=== PATIENT | female | born 2005 | race Caucasian/White ===

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

== ENCOUNTER 2023-09-16 10:58 | Emergency (ER) | payer MEDICAID, SELFPAY ==
[2023-09-16 11:02] VITALS: BP 137/84; PULSE 80; RESP 16; TEMP 36.6; O2SAT 99
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
[2023-09-16] MEDS: Haloperidol 1 MG TAB 2 MG PO (11:31)
[2023-09-16 12:12] VITALS: PULSE 80; RESP 20
[2023-09-16] MEDS: diphenhydrAMINE 50 MG/ML VIAL 25 MG IM (12:31)
[2023-09-16] MEDS: LORazepam 2 MG/ML VIAL 1 MG IM (12:32)
[2023-09-16 13:12] VITALS: BP 119/71; PULSE 74; RESP 16
--- NOTE | 2023-09-16 13:55 | PDOC.CMSAFE ---
Date of service: 09/16/23 Time of Service: 13:55 Care Management Safety Plan Status Status: Involuntary Reason for Wait Reason for Wait: Assessment/Screening (EE Paperwork and [facility] Psychiatrist evaluation for second certification. ) Safety Plan Safety Plan: INVOLUNTARY FOR INPATIENT PSYCHIATRIC STABILIZATION. 1230: Sunil Dumont called. CM responded, check in with Alexy [facility] Crisis screener who reports Connie became aggressive during screening, throwing items at [facility] workers, and required intervention and Code Dumont response, Alexy states Nelda, [facility] will prepare EE paperwork for involuntary hold. 1330: Nelda [facility] reports EE paperwork is being completed. Safety plan has been established to meet the needs of the patient, and consideration of the care team, to adhere to patient goals, identify restrictions based on behavioral status, address nutrition, and determine allowed personal belongings, tools for hygiene and personal care. Determine level of activity including ambulation, level of supervision, visitors, and determine privileges based on behaviors and level of engagement by pt. CM called to bedside during Sunil Dumont response. Connie was in four point restraints, sitting up, trying to pull her arms out of the restraints and remained escalated throughout multiple interactions. CM spoke with Connie who provided verbal permission for this internal communications writer to communicate and update her mother. Connie repeatedly stated I want to leave, I don't belong here. She was not easily redirected by patient education on process/procedure and became verbally escalated saying I want to , You're going to hell, also using expletives and derogatory language to verbally attack staff. She refused to engage until permitted to leave. She refused visit with her mother unless she was permitted to leave with her mother. carburetor rebuilder requested family support with Connie's mother, Na. CM met with Na in Access office outside of ED waiting room. CM provided education central to involuntary status, patient rights and provided MH booklet for reference. Na shared the following: Connie has formerly engaged in therapy including a few sessions privately, at [facility] and outpatient online through [place]; none of these were reportedly helpful. Connie tends to become angry and isolate, she struggles with body dysmorphia, fears others and feels when others look at her they are being critical of her face and body, she struggles to see herself. She has severe and persistent bulimia, currently regurgitating most, if not all of her meals. In the past her weight has dropped below 100 lbs, per mother's report. She is currently employed at [facility] [employer] [employer] though Na notes a tendency to spiral and self destruct as Conine struggles to maintain more than a few days at a time. In the past when medications were tried, they reportedly made Connie more violent. Na notes that Prozac and Lexapro were both trialled. Na shares that Connie also struggles with substance use disorder, with ongoing daily nicotine and marijuana use, she also is impulsive with whatever she can get her hands on reportedly crushing and snorting even over the counter medications such as Tylenol and Ibuprofen. Information above, provided by Connie's mother, Na. CM met with staff in ED, outlined Connie's likely coping efforts to grasp some control, while feeling out of control; especially in regard to behavioral expectations. CM reviewed need for exhibited behavior to warrant increase in privileges, specific to period of stability, appropriate communication and verbalizing needs and wants while engaging respectively. Recommend focus on permitting Connie the opportunity to exhibit the ability to self regulate appropriately prior to re-introducing family contact and increased privileges. Awaiting 2nd Certification from [facility], and paperwork processing. SAFETY PLAN: 1. Will remain on SI/HI precautions. In Paper Clothes, is wearing her own socks at this time. 2. Will remain in room under direct supervision of one-on-one staff at all times provided by [employer]; SLEEP TECH, PETROL TANKER DRIVER regulatory affairs assistant. 3. May have paper cups, plates, finger foods as well as a cardboard spoon to eat meals. Connie struggles with persistent bulimia and is likely to regurgitate what is eaten per her mother's report. 4. Follow [facility] Management of the Admitted Behavioral Health Patient policy. 5. Comfort bath system only, shower available in Zone B without limitation; at RN discretion. 6. No personal belongings at this time-does have her own socks. 7. Visitors: none at this time per RN discretion. Mother advocated for brief visit prior to leaving, Connie was only agreeable if she could leave with her mother, was not successfully able to be re-directed to details of involuntary hold. Per staff and [facility] reports, Na became escalated during MH screening and refused to leave the room when directed. 8. Activities: Soft cart items only, at RN discretion. 9. ?Bathroom privileges with supervision, available in Zone B without restriction. 10. Phone: Limited to legal contact at this time via [facility] cordless phone. 11. Due to INVOLUNTARY status, patient is being held at [facility] by the Department of Mental Health ([facility]) until 2nd certification by [facility] Psychiatrist can be performed (within 24 hours). Staff will provide de-escalation support (CPI) as needed. If patient wishes to leave [facility], staff will contact [facility] Crisis Screener ([phone]) and On-Call Graduating Machine Operator ([phone]) as soon as possible. In the event of elopement, notify [facility] Police ([phone]). Patient is currently involuntarily at [facility]. [facility] Frontline Circus Rider will continue seeking placement. Please contact the Forming Machine Operator Graduating Machine Operator ([phone]) for any needed changes to Safety Plan. Safety plan has been provided to interdepartmental care team. Patient will be transported by regional economic liaison at time of discharge.
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
--- NOTE | 2023-09-16 15:04 | ED.PROG_ITS ---
Date of service: 09/16/23 Time of Service: 15:04 Medical Decision Making Patient now much more calm. Resting comfortably currently in zone B. 4 point restraints have been discontinued. Patient alert oriented following commands ambulatory without assistance, no evidence of somnolence or respiratory depression. Awaiting evaluation by psychiatric team for inpatient treatment Quality:[facility] Health Related Social Needs: No Data to Display Sign Out Sign Out Data: Sign Out Comment: SI - Patient awaiting 2nd cert, had some labile mood with restraints for 2 hours. Violent towards staff. Last updated by Yemi Leo PA at 09/16/23 15:03 Discharge Plan Discharge Details Chief Complaint: PsychEval Primary Care Provider: Laila Carrasco ED Provider: Yemi Leo Home Meds and New Rx's Prescriptions: No Action ascorbate calcium (vitamin C) 500 mg tablet 500 mg PO DAILY multivitamin [Daily Multi-Vitamin] Tablet 1 tab PO DAILY
--- NOTE | 2023-09-16 15:30 | RT.EKG_ITS ---
APPROVED REPORT Exam: Resting ECG Reason for Exam: medication Patient Location: E HR:77 bpm ECG Measurements Heart Rate 77 AXIS MO 169 P 72 QRSd 94 QRS 65 QT 412 T 53 QTc 465 Conclusion Sinus rhythm...normal P axis, V-rate 60- 99 sinus rhtyhm, normal axis, non ischemic
[2023-09-16] MEDS: Nicotine 2 MG GUM (15:45)
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
[2023-09-16] MEDS: Nicotine 2 MG GUM CH (23:10)
[2023-09-16] MEDS: LORazepam 1 MG TAB PO (23:10)
[2023-09-17] MEDS: LORazepam 1 MG TAB 2 MG PO (06:35)
[2023-09-17] MEDS: Nicotine 2 MG GUM CH ×4 (06:36→18:38)
--- NOTE | 2023-09-17 07:35 | W.PCEDHO ---
Registration Status: REG ER Primary Language: Preferred Language: ED Information & Data Chief Complaint PsychEval 09/16/23 11:17 Triage Note feeling depressed and 09/16/23 11:02 anxious, mom saw a wrist laceration and brought her to the ED Medical / Surgical History (Last Updated 09/09/22 @ 11:00 by Charito Jiménez NP) Drug abuse Eating disorder (Last Updated 09/09/22 @ 11:00 by Charito Jiménez NP) No pertinent past surgical history Most Recent Vital Signs Temperature 36.6 C 09/16/23 11:02 Temperature Source Tympanic 09/16/23 11:02 Pulse 74 09/16/23 13:12 Respiratory Rate 16 09/16/23 13:12 Respiratory Effort Normal 09/16/23 13:12 Blood Pressure 119/71 09/16/23 13:12 Blood Pressure Position Sitting 09/16/23 11:02 Pulse Oximetry 99 09/16/23 11:02 Oxygen Delivery Method Room Air 09/16/23 11:02 Oxygen Flow Rate 0 09/16/23 11:02 Pain Level 0 09/16/23 11:02 Allergies No Known Drug Allergies Allergy (Verified 09/09/22 09:26) Active Medications Generic Name Dose Route Start Last Admin Trade Name Freq PRN Reason Stop Dose Admin Nicotine 2 mg 09/17/23 06:23 09/17/23 06:36 Nicotine 2 Mg Gum CH 2 mg Q4H PRN PRN Administration Intake and Output - 24 Hour Total 09/16/23 10:58 thru 09/16/23 11:02 Weight 58.967 kg Falls Risk Assessment History of Falls No History 09/16/23 11:06 Contributing Factors No Factors 09/16/23 11:06 Ambulatory Aids Independent 09/16/23 11:06 Tubes/Lines None 09/16/23 11:06 Gait Evaluation No gait disturbance 09/16/23 11:06 Cognition No cognitive impairment 09/16/23 11:06 Fall Total Score 0 09/16/23 11:06 Level of Risk Standard/Low Risk 09/16/23 11:06 Restraint Information Behavior Requiring Restraints/ Harm to Staff & Others Seclusion Date of Initiation 09/16/23 Time Restraints were Initiated 12:00 Note pt is calm and cooperative. Had a good conversation regarding continued care next steps . Criteria for Restraint Removal No longer threat to self,No longer threat to other,Behavior Change Date Restraints Removed 09/16/23 Time Restraints Removed 15:11 Was Restraint Order Yes Discontinued v v v v v v v v v Sending and/or Receiving Nurses: Please use comment section below to note any information pertinent to the patient hand-off not included above. Information / Comments: Report received from: Kim Trotter RN at 0645 hrs on 09/17/23
--- NOTE | 2023-09-17 08:25 | NUR.NOTE ---
Nursing Note: Miguel Caceres from the [facility] Mental Health dept. called requesting information regarding the patient's behavior over the night and at the time of the call; as well as medications given and taken daily. Information given per request.
[2023-09-17] MEDS: diphenhydrAMINE 25 MG CAP PO (09:53)
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
[2023-09-17 11:20] VITALS: BP 122/78; PULSE 79; RESP 12; TEMP 37.2; O2SAT 98
[2023-09-17 11:31] LABS: *AMPHETAMINES SCREEN URINE Negative (Negative); *BARBITURATES SCREEN URINE Negative (Negative); *BENZODIAZEPINES SCREEN URINE Negative (Negative); Cannabinoids THC Positive (Negative); Cocaine Screen,Urine Negative (Negative); METHADONE URINE SCREEN Negative (Negative); OPIATES URINE SCREEN Negative (Negative); Tricyclic Antidepressants Negative (Negative)
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
--- NOTE | 2023-09-17 13:11 | NUR.NOTE ---
Nursing Note: While RN was speaking with pt, it was observed that the pt had a scant amount of blood on her scrubs and that her LT wrist laceration which was inflicted prior to pt's arrival to [facility] had opened up and was scantly bleeding. RN directly asked pt if she purposefully opened the wound up with her nails, pt stated she did not and that the wound opened on its own. RN asked pt if she could replace the steri strips that were on the wound before and bandage it; pt agreeable. MD and ED charge loader notified of incident.
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
[2023-09-17] MEDS: LORazepam 0.5 MG TAB PO ×2 (13:34→17:45)
--- NOTE | 2023-09-17 14:21 | NUR.NOTE ---
Nursing Note: Nurse to nurse report given to Isabelle RUBIO, Armand Abbott at 1422 hours on 09/17/23.
[2023-09-17 17:08] VITALS: BP 118/84; PULSE 95; RESP 14; TEMP 37.2; O2SAT 96
== END 2023-09-17 18:55 ==
PROVIDERS: Emergency Provider Emergency Medicine; PCP Family Medicine
DX: F32.A Depression, unspecified (principal); F41.9 Anxiety disorder, unspecified; R45.1 Restlessness and agitation; S61.512A Laceration without foreign body of left wrist, initial encounter; Z78.1 Physical restraint status; F17.210 Nicotine dependence, cigarettes, uncomplicated; X78.8XXA Intentional self-harm by other sharp object, initial encounter; Y92.018 Other place in single-family (private) house as the place of occurrence of the external cause
CPT/HCPCS: 00123; 80307; 81025; 93005; 96372; 99285; 93010; J1200; J2060

== ENCOUNTER 2023-10-24 15:09 | Emergency (ER) | payer MEDICAID, SELFPAY ==
[2023-10-24 15:09] VITALS: BP 129/105; PULSE 72; RESP 16; TEMP 36.3; O2SAT 99
[2023-10-24 15:42] LABS: Bilirubin Negative (Negative); Blood Negative (Negative); Clarity Clear (Clear); Glucose Negative (Negative); Ketones Negative (Negative); Leukocyte Esterase Negative (Negative); Nitrite Negative (Negative); Specific Gravity <= 1.005 (1.005-1.025); Urobilinogen 0.2 mg/dL (Up to 0.2)
[2023-10-24 15:55] LABS: *AMPHETAMINES SCREEN URINE Negative (Negative); *BARBITURATES SCREEN URINE Negative (Negative); *BENZODIAZEPINES SCREEN URINE Negative (Negative); Cannabinoids THC Positive (Negative); Cocaine Screen,Urine Negative (Negative); METHADONE URINE SCREEN Negative (Negative); OPIATES URINE SCREEN Negative (Negative)
[2023-10-24 15:56] LABS: Tricyclic Antidepressants Negative (Negative)
[2023-10-24 16:15] VITALS: BP 128/98
[2023-10-24] MEDS: Acetaminophen 500 MG TAB 1000 MG PO (16:15)
--- NOTE | 2023-10-24 16:22 | ED.GENADUL_ITS ---
Discharge Plan Disposition Patient Disposition: Psychiatric Hospital/Unit Specific Psychiatric Facility: Other Discharge Details Chief Complaint: PsychEval Clinical Impression: Depression, Deliberate self-cutting Primary Care Provider: Laila Carrasco ED Provider: Fortunato Rebollar Home Meds and New Rx's Prescriptions: No Action gabapentin 300 mg capsule 300 mg PO TID Patient Comments: TAKE ONE CAPSULE BY MOUTH THREE TIMES A DAY NEEDED FOR SEVERE ANXIETY fluoxetine [Prozac] 10 mg capsule 10 mg PO DAILY HPI General Date/Time Provider Initiated Documentation: 10/24/23 15:20 . Limitations to Documentation: no limitations . Information obtained by: patient . HPI Narrative: 17-year-old female with past medical history of depression and anxiety presents for evaluation of increasing thoughts of self-harm and self cutting. Patient reports that she cut her left forearm with a razor blade today. She reports that she did have intention to harm herself. She states that she was recently discharged from [facility] after an inpatient stay. She reports that she feels like she was discharged too soon, she feels like she is not better. She states that the medication she was discharged on has not been helping her. She denies any drug or alcohol use. Related Data Home Medications Medication Instructions Recorded Confirmed fluoxetine 10 mg capsule (Prozac) 10 mg PO DAILY 10/24/23 10/24/23 gabapentin 300 mg capsule 300 mg PO TID 10/24/23 10/24/23 Allergies Allergy/AdvReac Type Severity Reaction Status Date / Time No Known Drug Allergies Allergy Verified 09/09/22 09:26 General Stated Complaint: PsychEval COLTON: 2 Exam Narrative Exam Narrative: Review of Systems: All systems reviewed & are unremarkable except as noted in HPI and below Well-developed, tearful NCAT PERRL, normal conjunctiva RRR Unlabored respiratory effort Nondistended abdomen Extremities w/o deformity, no cyanosis, no edema Multiple linear superficial lacerations of the left forearm, these are all perpendicular to the arm, no large lacerations requiring suture repair, patient is neurovascularly intact with good movement, sensation and range of motion in all distributions of the hand no focal neurologic deficits + SI Course Vital Signs Vital signs: Vital Signs Temperature 36.3 C L 10/24/23 15:09 Pulse 72 10/24/23 15:09 Respiratory Rate 16 10/24/23 15:09 Blood Pressure 129/105 H 10/24/23 15:09 Pulse Oximetry 99 10/24/23 15:09 Temperature 36.3 C L 10/24/23 15:09 Temperature Source Tympanic 10/24/23 15:09 Pulse 72 10/24/23 15:09 Respiratory Rate 16 10/24/23 15:09 Respiratory Effort Normal, Non-Labored 10/24/23 15:21 Blood Pressure 128/98 H 10/24/23 16:15 Blood Pressure Position Sitting 10/24/23 15:09 Pulse Oximetry 99 10/24/23 15:09 Oxygen Delivery Method Room Air 10/24/23 15:09 Oxygen Flow Rate 0 10/24/23 15:09 Pain Level 8 10/24/23 15:09 Lab/Test Results Lab/Test Results: Laboratory Tests Range/Units 10/24/23 15:27 Urine Color (Yellow) Yellow Urine Clarity (Clear) Clear Urine pH (5-8) 6.0 Ur Specific [place] (1.005-1.025) <= 1.005 Urine Protein (Neg-Trace) mg/dL Negative Urine Ketones (Negative) mg/dL Negative Urine Blood (Negative) Negative Urine Nitrite (Negative) Negative Urine Bilirubin (Negative) Negative Urine Urobilinogen (Up to 0.2) mg/dL 0.2 Ur Leukocyte Esterase (Negative) Negative Urine Glucose (Negative) mg/dL Negative Urine Opiates Screen (Negative) Negative Urine Methadone Screen (Negative) Negative Ur Barbiturates Screen (Negative) Negative Ur Tricyclics Screen (Negative) Negative Ur Amphetamines Screen (Negative) Negative U Benzodiazepines Scrn (Negative) Negative Urine Cocaine Screen (Negative) Negative Ur THC Screen (Negative) Positive A POC- Test(urine) Negative Procedures Laceration Laceration 1: Site: upper extremity Side (If applicable): left Description: linear Depth: simple, single layer Skin layer closed with: other (steri strips) Medical Decision Making Evaluation of depression and suicidal ideation with self-harm including self cutting of the left forearm. Initial differential includes mood disorder, substance-induced mood disorder, major depressive disorder. Lacerations of the left forearm are very superficial, no deep structures are involved, the wounds were cleaned and Steri-Strips applied on some of the more gaping areas. Otherwise the patient is medically cleared for psychiatric evaluation. Smart clearance form completed. Patient was evaluated by [facility], she is requesting inpatient voluntary placement. Referrals will be sent for placement. Medical Records Medical records reviewed: Yes I reviewed the patient's medical records. Lab Data Lab results reviewed: Yes I reviewed the patient's lab results. Quality:[facility] Health Related Social Needs: No Data to Display PFSH All Active Problems (Updated 10/24/23 @ 16:40 by Fortunato Rebollar MD) Deliberate self-cutting (Acute) Depression (Chronic) Medical History Drug abuse hx of cocaine, codeine, percocet and adderall abuse Eating disorder Surgical History No pertinent past surgical history Family History Other Breast cancer Social History Smoking/Tobacco Use Status: Current every day Tobacco Type: cigarettes Smoking risk assessment performed?: Yes Alcohol Intake: former Drug use: Occasionally Substance use type: marijuana Do you feel safe at home: Yes Female Reproductive History Menstrual control method: condoms History History 0 Para Hx # Term Pregnancies Multiple births Hx # Pregnancies Ectopic pregnancies AB induced Hx Number of Living Children AB spontaneous
--- NOTE | 2023-10-24 16:36 | PDOC.MHCN_ITS ---
Date of service: 10/24/23 Time of Service: 04:19 PHQ-9 Over the last 2 weeks, how often have you been bothered by any of the following problems? 1. Little interest or pleasure in doing things: more than half the days 2. Feeling down, depressed, or hopeless: nearly every day 3. Trouble falling or staying asleep, or sleeping too much: several days 4. Feeling tired or having little energy: more than half the days 5. Poor appetite or overeating: nearly every day 6. Feeling bad about yourself - or that you are a failure or have let yourself and your family down: nearly every day 7. Trouble concentrating on things, such as reading the newspaper or watching television: more than half the days 8. Moving or speaking so slowly that other people could have noticed? - Or the opposite - being so fidgety or restless that you have been moving around a lot more than usual: several days 9. Thoughts that you would be better off or of hurting yourself in some way: nearly every day Total score: 20 If you checked off any problems, how difficult have these problems made it for you to do your work, take care of things at home, or get along with other people?: extremely difficult PHQ-9 Results: Positive Source: Developed by Drs. Shay Herrera, Mely Quinteros, Boom Joshua and colleagues, with an educational blanca from [employer]. Suicide Severity Rate CSSRS Have you wished you were or wished you could go to sleep and not wake up?: Yes Have you actually had any thoughts of killing yourself?: Yes CSSRS2 Have you been thinking about how you might do this?: Yes Have you had these thoughts and had some intention of acting on them?: No Have you started to work out or worked out the details of how to kill yourself? Do you intend to carry out this plan?: No CSSRS3 Have you ever done anything, started to do anything or prepared to do anything to end your life?: Yes CSSRS4 Was this within the past three months?: Yes Screening Score Total Score: 8 Screening: Positive Mental Health Emergency Note Release [facility] release signed:: Yes Reason for Visit Connie presented to [facility] due to a laceration on her arm that was self inflicted, Connie was transported via ambulance from her home. Connie is known to [facility] and is followed by a therapist and med provider. Connie is being seen via Zoom for this assessment. In the last 2 weeks has the pt presented for ES prior to today?: Unknown Client Information Client is: [facility]: Yes Non Suicidal Self Injury Current: Yes, Connie presented to the hospital today due to her self harm. Connie intentionally cut herself on her arm. History: yes, Connie has a history of cutting at 10, and then from age 15- now. Safety Risk/Harm to Self or Others Current Ideation to Harm Self or Others: Yes to self. (Connie reports she is having a lot of thoughts about not wanting to be alive. ) Intent: no, has no intent. Plan: no.does not have a plan. History of suicide attempt: No history of suicide attempt reported Risk: Does risk to harm exist?: yes. Access to means: No. Risk: Low Risk Duty to warn indicated: No Asssessment/Mental Status Appearance: Unremarkable Attitude: Cooperative Behavior: Unremarkable Speech: Normal Affect: Cogruent with mood Mood: Stressed Thought process: Goal directed Hallucinations: No evidence Delusions: No evidence Attention: Unremarkable Perception: Not impaired Orientation: Fully orientated Memory: Intact Insight: Fair Judgement: Fair Neurovegetative Symptoms Sleep: Decrease Appetitie: No change Interests: No change Energy: No change Libido: Not applicable Substance Use: Do you use nicotine?: Yes Have you used substances in the last 7 days?: No Additional Issues: Assaultive/Threatening Behavior: No Medical Concerns: No Client engaged in active self harm w/weapon: Yes Threatening to run away: No Child reported abuse/neglect: No Voluntarily presenting for services: Yes Domestic violence is a concern: No Extreme Psychosis or extreme behavior is present: No Impression 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 Connie reports she was self harming after having thoughts of ending her life when she asked to go to the hospital because she cut 'too deep' and thought a doctor should look at it.. Connie reports the cut required stitches and is now wrapped. Connie reports she is still having thoughts about ending her life but does not have a specific plan or intention. Connie reports several life stressors including her home life, family conflicts, being unemployed, and the overall feeling of being dissatisfied with her life. Connie reports she firs thought about ending her life around the age of [age] when her home life and family dynamic was shifting. Connie reports this is also the first time she cut herself. Connie reports struggling with this for some time around the age of 10, but it went away until she was about 15. Connie reports that she recently feels depressed, cannot sleep, and has a lack of motivation to do anything. Connie disclosed she went to [facility] about one month ago and found it beneficial and feels like she is at the level where she needs inpatient support. Connie will remain at [facility], seeking voluntary inpatient treatment. Resources Reosurces reviewed and given:: [facility] Plan/Disposition Recommended Disposition: Hospitalization (Referrals are being sent now. ) fac ilities contacted. Plan: Connie will remain at [facility] until voluntary placement is found. Person reported agreement to plan: Yes Reports/communication Outcome discussed with: ED/Personnel
[2023-10-24] MEDS: ALPRAZolam 0.5 MG TAB PO (17:38)
--- NOTE | 2023-10-24 18:43 | W.EDPROG ---
Date of service: 10/24/23 Time of Service: 18:43 Medical Decision Making I received signout on this 17-year-old patient in the emergency department voluntarily in the setting of depression. She has recently been hospitalized at the [facility]. She engaged in some superficial self cutting today for which she received Steri-Strips. Her home medications have been ordered as well as some as needed alprazolam and quetiapine. She is on a regular diet with a safety tray. No active behavioral issues last shift. Will update documentation as clinically warranted and signed patient out to the [facility] overnight provider. 11:11 PM No active behavioral issues on my shift. I signed patient out to Dr. Chapa. Quality:[facility] Health Related Social Needs: No Data to Display Sign Out Sign Out Data: Sign Out Comment: Pending voluntary psychiatric placement for depression and suicidal ideation Medically cleared, evaluated by [facility] home medications and PRNS for anxiolysis and sleep have been ordered Patient presented today with increasing depression and suicidal ideation, she had self-inflicted superficial cutting of her left forearm. A few Steri-Strips were applied, but otherwise lacerations are fairly superficial. She was recently inpatient at [facility] and feels like she was discharged too soon and is requesting to return. Last updated by Fortunato Rebollar MD at 10/24/23 17:02 Discharge Plan Disposition Patient Disposition: Psychiatric Hospital/Unit Specific Psychiatric Facility: Other Discharge Details Clinical Impression: Depression, Deliberate self-cutting Primary Care Provider: Laila Carrasco ED Provider: Kvng Riley Home Meds and New Rx's Prescriptions: No Action gabapentin 300 mg capsule 300 mg PO TID Patient Comments: TAKE ONE CAPSULE BY MOUTH THREE TIMES A DAY NEEDED FOR SEVERE ANXIETY fluoxetine [Prozac] 10 mg capsule 10 mg PO DAILY bupropion HCl 150 mg tablet sustained-release 12 hr PO QAM Patient Comments: TAKE ONE TABLET BY MOUTH EVERY DAY
[2023-10-24] MEDS: Gabapentin 300 MG CAP PO (20:30)
[2023-10-24] MEDS: FLUoxetine 10 MG TAB PO (21:43)
[2023-10-24] MEDS: QUEtiapine 50 MG TAB PO (21:44)
[2023-10-25] MEDS: ALPRAZolam 0.5 MG TAB PO ×2 (03:53→11:36)
[2023-10-25] MEDS: Gabapentin 300 MG CAP PO (07:03)
--- NOTE | 2023-10-25 07:03 | W.EDPROG ---
Date of service: 10/25/23 Time of Service: 07:03 Medical Decision Making Patient seeking voluntary placement for depression and thoughts of self-harm, no reported events overnight and currently calm and cooperative with no acute complaints. Will continue to monitor until safe disposition found. Quality:[facility] Health Related Social Needs: No Data to Display Sign Out Sign Out Data: Sign Out Comment: Pending voluntary psychiatric placement for depression and suicidal ideation Medically cleared, evaluated by [facility] home medications and PRNS for anxiolysis and sleep have been ordered Patient presented today with increasing depression and suicidal ideation, she had self-inflicted superficial cutting of her left forearm. A few Steri-Strips were applied, but otherwise lacerations are fairly superficial. She was recently inpatient at [place] and feels like she was discharged too soon and is requesting to return. Last updated by Fortunato Rebollar MD at 10/24/23 17:02 Sign Out Comment: This is a 17-year-old female in the emergency department voluntarily with in setting of depression and suicidal ideation. Home medications ordered. Additional PRNs in place as well. Regular diet with a safety tray. No active behavioral issues last shift. [facility] hoping for return to [facility]. Last updated by Kvng Riley MD at 10/24/23 23:14 Sign Out Comment: No events overnight. Remains voluntary and awaiting inpatient psychiatric bed. Last updated by Shay Chapa MD at 10/25/23 06:48 Discharge Plan Disposition Patient Disposition: Psychiatric Hospital/Unit Specific Psychiatric Facility: Other Discharge Details Clinical Impression: Depression, Deliberate self-cutting Primary Care Provider: Laila Carrasco ED Provider: Miguel Jiménez Home Meds and New Rx's Prescriptions: No Action gabapentin 300 mg capsule 300 mg PO TID Patient Comments: TAKE ONE CAPSULE BY MOUTH THREE TIMES A DAY NEEDED FOR SEVERE ANXIETY fluoxetine [Prozac] 10 mg capsule 10 mg PO DAILY bupropion HCl 150 mg tablet sustained-release 12 hr 150 mg PO QAM Patient Comments: TAKE ONE TABLET BY MOUTH EVERY DAY
[2023-10-25] MEDS: buPROPion-XL 150 MG TABCR PO (08:19)
[2023-10-25] MEDS: Haloperidol 1 MG TAB 2 MG PO (09:01)
[2023-10-25 09:16] VITALS: BP 120/85; PULSE 67; RESP 16; TEMP 36.8; O2SAT 100
--- NOTE | 2023-10-25 10:50 | NUR.NOTE ---
Referral given to Care managers for assistance scheduling an appointment [facility] Bleeding in
== END 2023-10-25 12:03 ==
PROVIDERS: Emergency Medicine; Emergency Provider Emergency Medicine; PCP Family Medicine
DX: R45.851 Suicidal ideations (principal); F32.A Depression, unspecified; S51.812A Laceration without foreign body of left forearm, initial encounter; F17.210 Nicotine dependence, cigarettes, uncomplicated; X78.8XXA Intentional self-harm by other sharp object, initial encounter
CPT/HCPCS: 00123; 80307; 81025; 96127; 99285; 81003

== ENCOUNTER 2023-12-22 17:31 | Emergency (ER) | payer MEDICAID, SELFPAY ==
[2023-12-22 17:41] VITALS: BP 120/85; PULSE 85; RESP 16; TEMP 37.1; O2SAT 99
--- NOTE | 2023-12-22 18:09 | W.ED.GENAD ---
Discharge Plan Discharge Details Chief Complaint: PsychEval Primary Care Provider: Laila Carrasco ED Provider: Miriam Jose Home Meds and New Rx's Prescriptions: No Action gabapentin 300 mg capsule 600 mg PO DAILY PRN Patient Comments: TAKE ONE CAPSULE BY MOUTH THREE TIMES A DAY NEEDED FOR SEVERE ANXIETY fluoxetine [Prozac] 10 mg capsule 20 mg PO DAILY Patient Comments: taking at night bupropion HCl 150 mg tablet sustained-release 12 hr 300 mg PO QAM hydroxyzine HCl 50 mg tablet 50 mg PO TID PRN Patient Comments: TAKE ONE TABLET BY MOUTH THREE TIMES A DAY NEEDED FOR ANXIETY buspirone 5 mg tablet 5 mg PO BID Patient Comments: TAKE 1 TABLET BY MOUTH TWO TIMES A DAY DAILY. INCREASE TO 2 TABLETS TWO TIMES A DAY POST 4 DAYS IF WELL TOLERATED lorazepam 0.5 mg tablet 0.5 mg PO DAILY PRN Patient Comments: TAKE ONE TABLET BY MOUTH EVERY DAY NEEDED FOR SEVERE ANXIETY HPI General Date/Time Provider Initiated Documentation: 12/22/23 17:37. HPI Narrative: Connie is a 18 year old female who presented to the emergency department today for suicidal ideation and self-harm. She reports that she was hospitalized 4 weeks ago for 1 week for suicide attempt, says that she has been under significant stress and today everything came to ahead. She admits to cutting herself with a razor blade as a suicide attempt. Denies HI, hallucinations, episodes of yan. Says she has otherwise been in good health, no headache, dizziness, congestion, cough, chest pain, shortness of breath, nausea/vomiting, change in p.o. intake, abdominal pain, change in bowel or bladder function. No significant past medical history. Says she is up-to-date for tetanus. She denies alcohol or tobacco use, marijuana use, other drug use, medication misuse/overdose. Physical exam remarkable for numerous cuts to volar aspect of left forearm, some gaping. No active bleeding at this time. Full painless range of motion to elbow and wrist. Vital signs stable, no tachycardia, tachypnea. Easy work of breathing, lung sounds clear bilaterally. Normal heart sounds. Abdomen is soft, nondistended, nontender to palpation. Moist mucous membranes. Normal gait. History and presentation consistent with suicidal ideation with no complicating factors, smart clearance performed. Patient to be medically cleared after lacerations repaired. Gapping lacerations repaired after extensive irrigation under running tap water. Able to visualize wound to the base in a bloodless field. 5 cc 2% lidocaine with epi used for local anesthetic after let application as well. 20 sutures placed using 4-0 Ethilon. Edges able to be well-approximated. Steri-Strips also applied to the lacerations. Patient tolerated procedure well. Patient medically cleared for zone B. I did discuss case with patient's mother, who is concerned that patient was recently switched from 1800 mg of gabapentin daily to as needed (3 days ago). She is concerned that this may have precipitated crisis. Patient has been evaluated by Marilu at [facility]. Connie does have a therapy appointment tomorrow. Mother (who pt lives with) has Connie's medications locked up; there is no access to firearms at home and mother will secure the home and look for dangerous items. Connie and her mother are both agreeable with plan of care. Patient to be safety planned home. Related Data Home Medications ?Medication ?Instructions ?Recorded ?Confirmed bupropion HCl 150 mg tablet,12 hr 300 mg PO QAM 10/24/23 12/22/23 sustained-release fluoxetine 10 mg capsule (Prozac) 20 mg PO DAILY 10/24/23 12/22/23 gabapentin 300 mg capsule 600 mg PO DAILY PRN 10/24/23 12/22/23 hydroxyzine HCl 50 mg tablet 50 mg PO TID PRN 10/25/23 12/22/23 buspirone 5 mg tablet 5 mg PO BID 12/22/23 12/22/23 lorazepam 0.5 mg tablet 0.5 mg PO DAILY PRN 12/22/23 12/22/23 Allergies Allergy/AdvReac Type Severity Reaction Status Date / Time No Known Drug Allergies Allergy Unknown Verified 12/22/23 17:46 General Stated Complaint: PsychEval COLTON: 2 Review of Systems Narrative: see HPI Exam Const General: cooperative, healthy appearing, comfortable, no acute distress and anxious Nutritional Appearance: average body habitus Resp Effort & Inspection: normal respiratory effort and able to speak in complete sentences Auscultation: clear to auscultation bilaterally Cardio Rate: regular rate Rhythm: regular rhythm Pulses: radial pulses present GI Inspection: normal to inspection Palpation: soft and nontender Skin Rashes: no rashes Trauma: laceration (multiple, L forearm (volar aspect)) Course Vital Signs Vital signs: Vital Signs Temperature 37.1 C 12/22/23 17:41 Pulse 85 12/22/23 17:41 Respiratory Rate 16 12/22/23 17:41 Blood Pressure 120/85 12/22/23 17:41 Pulse Oximetry 99 12/22/23 17:41 Temperature 37.1 C 12/22/23 17:41 Temperature Source Skin 12/22/23 17:41 Pulse 85 12/22/23 17:41 Respiratory Rate 16 12/22/23 17:41 Respiratory Effort Normal, Non-Labored 12/22/23 18:05 Blood Pressure 120/85 12/22/23 17:41 Blood Pressure Position Sitting 12/22/23 17:41 Pulse Oximetry 99 12/22/23 17:41 Oxygen Delivery Method Room Air 12/22/23 17:41 Oxygen Flow Rate 0 12/22/23 17:41 Pain Level 0 12/22/23 17:41 Procedures Laceration Laceration 1: Site: upper extremity (forearm) Side (If applicable): left Description: linear (multiple, linear. Approx 4-9 cm in length (approx 10 lacerations total)) Depth: simple, single layer Local anesthetic: Lidocaine 2%, with Epi and LET(lidocaine epinephrine tetracaine) Amount of anesthesia used (mL): 5 Pre-repair: wound explored, irrigated extensively and deep structures intact Skin layer closed with: nylon Size (cm): 4-0 Number of sutures: 20 Technique: simple, interrupted and other (plus steristrips) Medical Decision Making Quality:SDOH Health Related Social Needs: No Data to Display PFSH All Active Problems (Updated 11/25/23 @ 00:09 by GALINDO ANGLIN) Depression (Chronic) Medical History Drug abuse hx of cocaine, codeine, percocet and adderall abuse Eating disorder Surgical History No pertinent past surgical history Family History Other Breast cancer Social History Smoking/Tobacco Use Status: Never Smoking risk assessment performed?: Yes Alcohol Intake: former Drug use: Never Substance use type: does not use Do you feel safe at home: Yes Female Reproductive History Menstrual control method: condoms History History 0 Para Hx # Term Pregnancies Multiple births Hx # Pregnancies Ectopic pregnancies AB induced Hx Number of Living Children AB spontaneous
--- OUTSIDE RECORDS SUMMARY | 2023-12-22 18:12 | XMS_ITS | Encounter Summary ---
Author Organization [facility] Address [address] [place] [address] Care Team Providers Care Water Service Dispatcher Name Role Phone Unavailable Primary Care Provider Unavailabl e Encounter Details Date Type Department Care Team (Late st Contact Info) Description 09/10/2022 Lab Requisition [facility] Pathology & Laboratory Medicine - [address] [address] Outr Resulting Lab, Provider Social History Tobacco Use Types Packs/Day Years Used Date Smoking Tobacco: Never Assessed Sex and Gender Information Value Date Recorded Sex Assigned at Not on file Gender Identity Not on file Sexual Orientation Not on file documented as of this encounter Plan of Treatment Not on file documented as of this encounter Procedures Procedure Name Priority Date/Time Associated Diagnosis Comments CHLAMYDIA/N. GONORRHOEAE AMPLIFIED NUCLEIC ACID Routine 09/09/2022 10:00 EDT documented in this encounter Results * CHLAMYDIA/N. GONORRHOEAE AMPLIFIED RNA (09/09/2022 10:00 EDT) Neisseria gonorrhoeae Result Negative Negative 09/11/2022 13:25 EDT [facility] Chlamydia trachomatis Result Negative Negative 09/11/2022 13:25 EDT [facility] Urine URINE / Unknown 09/09/2022 1 0:00 EDT 09/10/2022 18:48 EDT Narrative [facility] - 09/11/2022 13:25 EDT A first catch urine specimen is acceptable for detection of Gonorrhea and Chlamydia, but might detect up to 10% fewer infections when compared with vaginal and endocervical swab samples. Provider Outr Resulting Lab MICROBIOLOGY - GENERAL ORDERABLES [facility] [address] [place] [address] documented in this encounter Visit Diagnoses Not on filedocumented in this encounter
--- OUTSIDE RECORDS SUMMARY | 2023-12-22 18:12 | XMS_ITS | Referral Summary ---
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
--- OUTSIDE RECORDS SUMMARY | 2023-12-22 18:12 | XMS_ITS | Clinical Summary ---
Author Organization [facility] Address [address] [place] [id number] Care Team Providers Care Director Of Global Marketing Name Role Phone Unavailable Primary Care Provider Unavailabl e Social History Tobacco Use Types Packs/Day Years Used Date Smoking Tobacco: Never Assessed Sex and Gender Information Value Date Recorded Sex Assigned at Not on file Gender Identity Not on file Sexual Orientation Not on file Plan of Treatment Health Maintenance Due Date Last Done Comments Hepatitis C Screen 2003 Hepatitis B Vaccine (1 of 3 - 19+ 3-dose series) 11/25 COVID-19 Vaccine (2022-24 season) 2023
[2023-12-22] MEDS: Lidocaine/Epinephri/Tetracaine Topical Gel 3 ML TP (18:26)
[2023-12-22] MEDS: Lidocaine 2% Pres-Free W/EPI 1/200,000 20 ML VIAL (20:03)
[2023-12-22] MEDS: Gabapentin 300 MG CAP 600 MG PO (20:22)
[2023-12-22] MEDS: busPIRone 5 MG TAB PO (20:22)
[2023-12-22] MEDS: LORazepam 0.5 MG TAB PO (20:22)
== END 2023-12-22 23:39 | disposition home or self-care (01) ==
PROVIDERS: Emergency Provider Nurse Practitioner Family; PCP Family Medicine
DX: R45.851 Suicidal ideations (principal); S51.812A Laceration without foreign body of left forearm, initial encounter; F32.A Depression, unspecified; Z78.1 Physical restraint status; X78.1XXA Intentional self-harm by knife, initial encounter; Y93.89 Activity, other specified
CPT/HCPCS: 12004; 81025; 90471; 90715; 99285

== ENCOUNTER 2023-12-23 09:32 | Emergency (ER) | payer MEDICAID, SELFPAY ==
[2023-12-23 09:40] VITALS: BP 124/88; PULSE 86; RESP 14; TEMP 36.7; O2SAT 99
--- NOTE | 2023-12-23 09:55 | ED.GENADUL_ITS ---
Discharge Plan Discharge Details Chief Complaint: PsychEval Primary Care Provider: Laila Carrasco ED Provider: Ira Freed Home Meds and New Rx's Prescriptions: No Action gabapentin 300 mg capsule 600 mg PO DAILY PRN Patient Comments: TAKE ONE CAPSULE BY MOUTH THREE TIMES A DAY NEEDED FOR SEVERE ANXIETY fluoxetine [Prozac] 10 mg capsule 20 mg PO DAILY Patient Comments: taking at night bupropion HCl 150 mg tablet sustained-release 12 hr 300 mg PO QAM hydroxyzine HCl 50 mg tablet 50 mg PO TID PRN Patient Comments: TAKE ONE TABLET BY MOUTH THREE TIMES A DAY NEEDED FOR ANXIETY buspirone 5 mg tablet 5 mg PO BID Patient Comments: TAKE 1 TABLET BY MOUTH TWO TIMES A DAY DAILY. INCREASE TO 2 TABLETS TWO TIMES A DAY POST 4 DAYS IF WELL TOLERATED lorazepam 0.5 mg tablet 0.5 mg PO DAILY PRN Patient Comments: TAKE ONE TABLET BY MOUTH EVERY DAY NEEDED FOR SEVERE ANXIETY HPI General Mode of arrival: ambulatory . Date/Time Provider Initiated Documentation: 12/23/23 09:32 . Limitations to Documentation: no limitations . Information obtained by: patient, RN notes reviewed and old records reviewed . HPI Narrative: 18-year-old female with a history of self cutting who was seen here approximately 24 hours ago and safety planned home presents to the ER with chief complaint of suicidal ideation without specific plan. She does have multiple lacerations noted to her left inner forearm which some of were repaired yesterday with simple interrupted sutures. Patient denies any new cutting no active bleeding noted on exam. She is disheveled. She states that I do not go inpatient I do not feel safe at home and like going to hurt myself. She did take her a.m. medications this morning. Denies taking any extra medications denies any smoking drugs or alcohol. She does not appear to be under the anything at this time. Does have a history of eating disorder in the previous. Patient placed in paper scrubs in line of sight of nurses station, urinalysis UDS and urine ordered patient reports that she is unable to give a sample at this time. Mental health eval ordered. Related Data Home Medications ?Medication ?Instructions ?Recorded ?Confirmed bupropion HCl 150 mg tablet,12 hr 300 mg PO QAM 10/24/23 12/23/23 sustained-release fluoxetine 10 mg capsule (Prozac) 20 mg PO DAILY 10/24/23 12/23/23 gabapentin 300 mg capsule 600 mg PO DAILY PRN 10/24/23 12/23/23 hydroxyzine HCl 50 mg tablet 50 mg PO TID PRN 10/25/23 12/23/23 buspirone 5 mg tablet 5 mg PO BID 12/22/23 12/23/23 lorazepam 0.5 mg tablet 0.5 mg PO DAILY PRN 12/22/23 12/23/23 Allergies Allergy/AdvReac Type Severity Reaction Status Date / Time No Known Drug Allergies Allergy Unknown Verified 12/23/23 09:43 General Stated Complaint: PsychEval COLTON: 2 Review of Systems All systems reviewed & are unremarkable except as noted in HPI and below Psychiatric Psychiatric: Reports as per HPI, Reports depression and Reports suicidal ideation Exam Narrative Exam Narrative: Constitutional: Alert and oriented x3. Appears stated age. Thin body habitus. Disheveled, avoids eye contact. Head: Normocephalic, no trauma. Eyes: Pupils PERRL, Red reflex noted, EOM's intact. Eyelids symmetrical without lesions, discharge, or swelling. ENT: Bilateral TM's WNL, External ear normal to inspection, no mastoid TTP, swelling, or erythema, Nasal turbinates WNL, no nasal discharge. Normal dentition, Posterior pharynx WNL, no exudate. Chest: RRR, Normal S1, S2, distal pulses intact. Resp: Lungs clear to auscultation bilaterally, no wheezes, rales, or rhonchi. Abdomen: Soft, non-distended, Normoactive bowel sounds all 4 quads. Musculoskeletal: Normal gait, Moves all 4 extremities without difficulty. Skin: Multiple linear lacerations, partially repaired with multiple simple interrupted sutures, no induration or signs of infection. Capillary refill less than 2 sec. Neurologic: Cranial nerves II-XII intact. Alert and oriented x 3. Motor: No deficits noted. Sensory: Intact bilaterally all 4 extremities. Hematologic/Lymphatic: No ecchymosis, no lymphadenopathy. Psych: See below Psych Appearance: disheveled Speech and Movement: delayed speech and slowed movement Mood: labile mood Affect: indifferent and blunted Attitude: cooperative and avoids eye contact Thought Process: normal and loose association Thought Content: suicidality Insight: fair Judgment: fair Course Vital Signs Vital signs: Vital Signs Temperature 36.7 C 12/23/23 09:40 Pulse 86 12/23/23 09:40 Respiratory Rate 14 12/23/23 09:40 Blood Pressure 124/88 12/23/23 09:40 Pulse Oximetry 99 12/23/23 09:40 Temperature 36.7 C 12/23/23 09:40 Pulse 86 12/23/23 09:40 Respiratory Rate 14 12/23/23 09:40 Respiratory Effort Normal 12/23/23 09:42 Blood Pressure 124/88 12/23/23 09:40 Blood Pressure Position Sitting 12/23/23 09:40 Pulse Oximetry 99 12/23/23 09:40 Oxygen Delivery Method Room Air 12/23/23 09:40 Oxygen Flow Rate 0 12/23/23 09:40 Pain Level 0 12/23/23 09:40 Medical Decision Making 18-year-old female with a history of self cutting who was seen here approximately 24 hours ago and safety planned home presents to the ER with chief complaint of suicidal ideation without specific plan. She does have multiple lacerations noted to her left inner forearm which some of were repaired yesterday with simple interrupted sutures. Patient denies any new cutting no active bleeding noted on exam. She is disheveled. She states that I do not go inpatient I do not feel safe at home and like going to hurt myself. She did take her a.m. medications this morning. Denies taking any extra medications denies any smoking drugs or alcohol. She does not appear to be under the anything at this time. Does have a history of eating disorder in the previous. Patient placed in paper scrubs in line of sight of nurses station, urinalysis UDS and urine ordered patient reports that she is unable to give a sample at this time. Mental health eval ordered. Medical clearance form ordered, UA UDS urine . Patient transferred to the ED in paper scrubs. Awaiting mental health eval. Requesting anxiety medication, Lorazepam 0.5mg PO BID ordered. Spoke again with psych liaison with an EKG chest who has spoken with patient at length and patient's family patient's mother is very adamant that patient needs to be inpatient and patient is not willing to be safety planned to a care bed at this time. There was discussion on discharge home with safety plan and referral to care bed however patient was not willing to be seen for plan safest option would be to seek inpatient placement at this time. Patient does exhibit self-harm to the point of requiring sutures to her left arm cellulitis despite not verbalizing Plan for safest option at this time is voluntary inpatient. Care is to be handed off to oncoming provider Miriam Cheng NP pending voluntary inpatient psych placement. Patient's daily medications were ordered and diet was ordered. Patient is maintained calm cooperative throughout the entire stay. Medical Records Medical records reviewed: Yes I reviewed the patient's medical records. Quality:SDOH Health Related Social Needs: No Data to Display PFSH All Active Problems Lacerations of multiple sites of left arm (Acute) Depression (Chronic) Medical History Drug abuse hx of cocaine, codeine, percocet and adderall abuse Eating disorder Surgical History No pertinent past surgical history Family History Other Breast cancer Social History Smoking/Tobacco Use Status: Never Smoking risk assessment performed?: Yes Alcohol Intake: former Drug use: Never Substance use type: does not use Do you feel safe at home: Yes Female Reproductive History Menstrual control method: condoms History History 0 Para Hx # Term Pregnancies Multiple births Hx # Pregnancies Ectopic pregnancies AB induced Hx Number of Living Children AB spontaneous Sign Out Sign Out Data: Sign Out Comment: Pending voluntary placement, Refused safety plan, suicidal ideation without a plan. Last updated by Ira Freed NP at 12/23/23 15:49
--- NOTE | 2023-12-23 10:18 | PDOC.MHCN_ITS ---
Date of service: 12/22/23 Time of Service: 20:42 PHQ-9 Over the last 2 weeks, how often have you been bothered by any of the following problems? 1. Little interest or pleasure in doing things: nearly every day 2. Feeling down, depressed, or hopeless: nearly every day 3. Trouble falling or staying asleep, or sleeping too much: not at all 4. Feeling tired or having little energy: several days 5. Poor appetite or overeating: not at all 6. Feeling bad about yourself - or that you are a failure or have let yourself and your family down: nearly every day 7. Trouble concentrating on things, such as reading the newspaper or watching television: not at all 8. Moving or speaking so slowly that other people could have noticed? - Or the opposite - being so fidgety or restless that you have been moving around a lot more than usual: not at all 9. Thoughts that you would be better off or of hurting yourself in some way: not at all Total score: 10 If you checked off any problems, how difficult have these problems made it for you to do your work, take care of things at home, or get along with other people?: very difficult Source: Developed by Drs. Shay Herrera, Mely Quinteros, Boom Joshua and colleagues, with an educational blanca from [employer]. Suicide Severity Rate CSSRS Have you wished you were or wished you could go to sleep and not wake up?: No Have you actually had any thoughts of killing yourself?: No CSSRS3 Have you ever done anything, started to do anything or prepared to do anything to end your life?: Yes CSSRS4 Was this within the past three months?: Yes Screening Score Total Score: 4 Screening: Positive Mental Health Emergency Note Release [facility] release signed:: Yes Reason for Visit Connie presents to [facility] due to a self inflicted cut on her wrist. Connie reports she used a razor blade to cut herself and she cut too deep. In the last 2 weeks has the pt presented for ES prior to today?: Unknown Client Information Client is: Adult Outpatient Well Housed: Yes Non Suicidal Self Injury Current: Yes, Client cut herself with a razor blade. History: yes, Client has a history of self harming via cutting. Safety Risk/Harm to Self or Others Current Ideation to Harm Self or Others: No Risk: Does risk to harm exist?: No Risk: Low Risk Duty to warn indicated: No Asssessment/Mental Status Appearance: Unremarkable Attitude: Cooperative Behavior: Unremarkable Speech: Normal Affect: Cogruent with mood Mood: Anxious Thought process: Unremarkable Hallucinations: No evidence Delusions: No evidence Attention: Unremarkable Perception: Not impaired Orientation: Fully orientated Memory: Intact Insight: Fair Judgement: Fair Neurovegetative Symptoms Sleep: No change Appetitie: No change Interests: No change Energy: No change Libido: Not applicable Substance Use: Do you use nicotine?: No Have you used substances in the last 7 days?: No Additional Issues: Medical Concerns: No Client engaged in active self harm w/weapon: Yes Threatening to run away: No Child reported abuse/neglect: No Voluntarily presenting for services: Yes Domestic violence is a concern: No Extreme Psychosis or extreme behavior is present: No Impression Connie presented to [facility] due to a self inflicted cut on her wrist. Connie reports increased anxiety today and that she cut herself with a razor blade as a coping mechanism. Connie reports she cut too deep which is why she came to [facility]. Connie disclosed she is not having thoughts of not wanting to be alive, did not cut herself in attempt to , and would like to return home tonight as her last stay at [facility] was not beneficial. Connie reports her medications were changed Friday and she thinks the change has something to do with her cutting. This entry writer and Connie discussed the option of her going to the carebed, but she was not interested and reported outpatient treatment would be just fine. Connie and this entry writer discussed other coping skills including journaling, exercising, or talking with her family as well as rubbing an ice cube on her wrist or flicking a hair tie. Connie reports she did not use any coping skills today but feels she would be able to do so at home. Connie will be discharged on a safety plan with follow up to her therapy appointment in the morning and [facility] check in calls through the remainder of the week. Resources Reosurces reviewed and given:: Lissette, Community therapist and [facility] Plan/Disposition Recommended Disposition: Therapy. Plan: Connie will be discharged on a safety plan with follow up through her therapsit and [facility]. Person reported agreement to plan: Yes Reports/communication Outcome discussed with: ED/Personnel
[2023-12-23] MEDS: LORazepam 0.5 MG TAB PO ×2 (10:36→21:05)
--- NOTE | 2023-12-23 14:41 | CMSP_ITS ---
Date of service: 12/23/23 Time of Service: 14:41 Care Management Safety Plan Status Status: Voluntary Reason for Wait Reason for Wait: Inpatient Admission Safety Plan Safety Plan: VOLUNTARY FOR INPATIENT PSYCHIATRIC STABILIZATION.? Patient is appropriate in all interactions since arriving at [facility]; Pt has demonstrated appropriate coping and communication skills, has articulated his or her needs and concerns and is fully engaged during staff interactions. Eloina, [facility] crisis screener reports Connie presented to ED and was on a safety plan prior to returning today. Miguel RN in ED reports Connie became frustrated when engaging with her mother, was easily redirectable and able to process interaction appropriately and reflect on the interaction. Safety plan has been established with patient, and care team, to adhere to patient goals, identify restrictions based on behavioral status, address nutrition, and determine allowed personal belongings, tools for hygiene and personal care. Determine level of activity including ambulation, level of supervision, visitors, and determine privileges based on behaviors and level of engagement by pt. VOLUNTARY SAFETY PLAN: 1. Will remain on suicide precautions, in paper clothes 2. Will remain in Zone B under direct supervision of one-on-one staff at all times provided by [employer]; SUKHWINDER, ROCK SPLITTER wheel loader operator. 3. May have paper cups, plates, finger foods as well as a cardboard spoon with which to eat meals. 4. Follow [facility] Management of the Admitted Behavioral Health Patient policy. 5. Shower available in Zone B without restriction. 6. Personal belongings-soft items permitted at RN discretion. 7. Visitors-permitted at RN discretion. 8. Activities: soft cart items approved per RN discretion. 9.? Bathroom available in Zone B without restriction. 10. Phone: limited to [facility] cordless phone at RN discretion. Due to VOLUNTARY status, if patient wishes to leave [facility], staff will contact [facility] Crisis Screener ([phone]) and Sewing Line Baler ([phone]) as soon as possible. In the event of elopement, notify [facility] Police ([phone]). Patient is currently voluntarily at [facility] and seeking inpatient admission when a bed becomes available. [facility] Frontline Telephone Answerer will continue seeking placement. Please contact the [employer] Baler ([phone]) and [facility] Telephone Answerer ([phone]) for any needed changes in the Safety Plan. Safety plan has been provided to interdepartmental care team.
[2023-12-23 16:42] LABS: Cocaine Screen,Urine Negative (Negative)
[2023-12-23 16:43] LABS: *AMPHETAMINES SCREEN URINE Negative (Negative); *BARBITURATES SCREEN URINE Negative (Negative); *BENZODIAZEPINES SCREEN URINE Positive (Negative); Cannabinoids THC Positive (Negative); OPIATES URINE SCREEN Negative (Negative)
[2023-12-23 16:44] LABS: Tricyclic Antidepressants Negative (Negative)
[2023-12-23] MEDS: hydrOXYzine HCL 25 MG TAB 50 MG PO (16:55)
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
[2023-12-23] MEDS: busPIRone 5 MG TAB PO (20:32)
[2023-12-23] MEDS: Gabapentin 400 MG CAP PO (20:32)
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
[2023-12-23 22:31] VITALS: PULSE 73; O2SAT 96
[2023-12-23 22:41] VITALS: PULSE 68
--- NOTE | 2023-12-23 23:31 | NUR.NOTE ---
[facility] called and stated they will not be able to accept this pt .
[2023-12-23 23:32] VITALS: PULSE 65; O2SAT 95
[2023-12-24 00:50] VITALS: PULSE 60; O2SAT 97
[2023-12-24] MEDS: OLANZapine 10 MG VIAL IM (01:42)
[2023-12-24] MEDS: Water,Injection,Sterile 10 ML VIAL (01:50)
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
--- NOTE | 2023-12-24 08:22 | NUR.NOTE ---
Nursing Note: Received call from Pt Mother, who is on the patients HIPPA directives. Mother is upset, wants to know what's going on and what the plan is. Mother was updated on events that occurred last night as well as patients current status, waiting for inpatient placement. Mother became angry and states the patient does not need or want that. Mothers concerns were acknowledged and directed to discuss with [facility]. Pt moved back to zone b, calm and cooperative at this time. 2nd cert for EE to take place later this AM.
[2023-12-24] MEDS: FLUoxetine 20 MG CAP PO (08:53)
[2023-12-24] MEDS: Gabapentin 400 MG CAP PO ×2 (08:53→16:13)
[2023-12-24] MEDS: busPIRone 5 MG TAB PO (08:53)
[2023-12-24] MEDS: buPROPion-CR 150 MG TABCR 300 MG PO (08:53)
[2023-12-24] MEDS: LORazepam 0.5 MG TAB PO (11:22)
[2023-12-24 13:17] VITALS: BP 130/72; PULSE 67; RESP 16; TEMP 36.9; O2SAT 99
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
--- NOTE | 2023-12-24 16:06 | CMSP_ITS ---
Date of service: 12/24/23 Time of Service: 16:06 Care Management Safety Plan Status Status: Involuntary Reason for Wait Reason for Wait: Inpatient Admission Safety Plan Safety Plan: INVOLUNTARY FOR INPATIENT PSYCHIATRIC STABILIZATION.? Huddle in Zone B: Connie is now involuntary; CM called [facility] to verify Psychiatric determination, Miguel reports paperwork has been faxed to ED. Safety plan has been established with patient, and care team, to adhere to patient goals, identify restrictions based on behavioral status, address nutrition, and determine allowed personal belongings, tools for hygiene and personal care. Determine level of activity including ambulation, level of supervision, visitors, and determine privileges based on behaviors and level of engagement by pt. INVOLUNTARY SAFETY PLAN: 1. Will remain on suicide precautions, in paper clothes 2. Will remain in Zone B under direct supervision of one-on-one staff at all times provided by [employer]; SUKHWINDER, LARD TUB WASHER director trading. 3. May have paper cups, plates, finger foods as well as a cardboard spoon with which to eat meals. 4. Follow [facility] Management of the Admitted Behavioral Health Patient policy. 5. Shower available in Zone B without restriction. 6. Personal belongings-soft items permitted at RN discretion. 7. Visitors-none at this time. 8. Activities: soft cart items approved per RN discretion. 9.? Bathroom available in Zone B without restriction. 10. Phone: limited to [facility] cordless phone at RN discretion. Due to INVOLUNTARY status, patient is being held at [facility] by the Department of Mental Health ([facility]) until 2nd certification by [facility] Psychiatrist can be performed (within 24 hours). Staff will provide de-escalation support (CPI) as needed. If patient wishes to leave [facility], staff will contact [facility] Crisis Screener ([phone]) and Peanut Butter Maker ([phone]) as soon as possible. In the event of elopement, notify [place] [employer] Police ([phone]). Patient is currently involuntarily at [facility]. [facility] Frontline Business Law Professor will continue seeking placement. Please contact the Peanut Butter Maker for any needed changes to Safety Plan. Safety plan has been provided to interdepartmental care team. Patient will be transported by [employer] at time of discharge.
--- NOTE | 2023-12-24 16:06 | PDOC.CMSAFE ---
Date of service: 12/24/23 Time of Service: 16:06 Care Management Safety Plan Status Status: Involuntary Reason for Wait Reason for Wait: Inpatient Admission Safety Plan Safety Plan: INVOLUNTARY FOR INPATIENT PSYCHIATRIC STABILIZATION.? Huddle in Zone B: Connie is now involuntary; CM called [facility] to verify Psychiatric determination, Miguel reports paperwork has been faxed to ED. Safety plan has been established with patient, and care team, to adhere to patient goals, identify restrictions based on behavioral status, address nutrition, and determine allowed personal belongings, tools for hygiene and personal care. Determine level of activity including ambulation, level of supervision, visitors, and determine privileges based on behaviors and level of engagement by pt. INVOLUNTARY SAFETY PLAN: 1. Will remain on suicide precautions, in paper clothes 2. Will remain in Zone B under direct supervision of one-on-one staff at all times provided by [employer]; SUKHWINDER, DIRECTOR GLOBAL MEDICAL AFFAIRS paper products inspector. 3. May have paper cups, plates, finger foods as well as a cardboard spoon with which to eat meals. 4. Follow [facility] Management of the Admitted Behavioral Health Patient policy. 5. Shower available in Zone B without restriction. 6. Personal belongings-soft items permitted at RN discretion. 7. Visitors-none at this time. 8. Activities: soft cart items approved per RN discretion. 9.? Bathroom available in Zone B without restriction. 10. Phone: limited to [facility] cordless phone at RN discretion. Due to INVOLUNTARY status, patient is being held at [facility] by the Department of Mental Health ([facility]) until 2nd certification by [facility] Psychiatrist can be performed (within 24 hours). Staff will provide de-escalation support (CPI) as needed. If patient wishes to leave [facility], staff will contact [facility] Crisis Screener ([phone]) and [employer] ([phone]) as soon as possible. In the event of elopement, notify [place] State Police ([phone]). Patient is currently involuntarily at [facility]. [facility] Frontline Automotive Finance Manager will continue seeking placement. Please contact the [employer]er for any needed changes to Safety Plan. Safety plan has been provided to interdepartmental care team. Patient will be transported by [employer] at time of discharge.
== END 2023-12-24 17:17 ==
PROVIDERS: Registered Nurse Emergency; Emergency Provider Emergency Medicine; PCP Family Medicine
DX: R45.851 Suicidal ideations (principal); R45.6 Violent behavior; T81.30XA Disruption of wound, unspecified, initial encounter; F32.A Depression, unspecified
CPT/HCPCS: 00123; 12002; 80307; 81025; 96127; 96372; 99285; J2359

== ENCOUNTER 2024-05-31 16:39 | Outpatient (REF) | payer MEDICAID, SELFPAY ==
--- OUTSIDE RECORDS SUMMARY | 2024-05-31 16:44 | XMS_ITS | Clinical Summary ---
Author Organization [facility] Address [address] [place] [address] Care Team Providers Care Crisis Nurse Name Role Phone Unavailable Primary Care Provider Unavailabl e Social History Tobacco Use Types Packs/Day Years Used Date Smoking Tobacco: Never Assessed Comments Unknown Sex and Gender Information Value Date Recorded Sex Assigned at Not on file Legal Sex Female 6:29 EDT Gender Identity Not on file Sexual Orientation Not on file Plan of Treatment Health Maintenance Due Date Last Done Comments Hepatitis C Screen 2003 Hepatitis B Vaccine (1 of 3 - 19+ 3-dose series) 11/25 COVID-19 Vaccine ( season) 2024
--- OUTSIDE RECORDS SUMMARY | 2024-05-31 16:44 | XMS_ITS | Encounter Summary ---
Author Organization [facility] Address [address] [place] [address] Care Team Providers Care Outsole Scheduler Name Role Phone Unavailable Primary Care Provider Unavailabl e Encounter Details Date Type Department Care Team (Late st Contact Info) Description 09/10/[address] [facility] Pathology & Laboratory Medicine - [address] [address] Outr Resulting Lab, Provider Social History Tobacco [...] gonorrhoeae Result Negative Negative 09/11/2022 13:25 EDT [facility] Chlamydia trachomatis Result Negative Negative 09/11/2022 13:25 EDT [facility] Urine URINE / Unknown 09/09/2022 1 0:00 EDT 09/10/2022 18:48 EDT Narrative [facility] - 09/11/2022 13:25 EDT A first catch urine specimen is acceptable for detection of Gonorrhea and Chlamydia, but might detect up to 10% fewer infections when compared with vaginal and endocervical swab samples. us Provider Outr Resulting Lab MICROBIOLOGY - GENER AL ORDERABLES Final Result [facility] [address] [place] [address] documented in this encounter Visit Diagnoses Not on filedocumented in this encounter
--- OUTSIDE RECORDS SUMMARY | 2024-05-31 16:44 | XMS_ITS | Referral Summary ---
Author Organization [facility] Address [address] [place] [address] Care Team Providers Care Hospital Cleaning Specialist Name Role Phone Unavailable Primary Care Provider [...]
[2024-05-31 21:28] LABS: ALT 19 U/L (14-59); AST 25 U/L (15-37); Albumin 4.1 g/dL (3.4-5.0); Alkaline Phosphatase 62 U/L (46-116); Amylase 35 U/L (25-115); Anion Gap 5.4 mmol/L (3-11); BUN 14 mg/dL (7-18); Bilirubin, Total 0.58 mg/dL (0.2-1.0); CO2 31.6 mmol/L (21.0-32.0); CREATININE 0.8 mg/dL (0.55-1.02); Calcium 9.6 mg/dL (8.5-10.1); Chloride 104 mmol/L (98-107); Estimated GFR 108.11 (mL/min/1.73m2); Glucose 75 mg/dL (74-106); PHOSPHORUS 3.7 mg/dL (2.6-4.7); Potassium 3.9 mmol/L (3.5-5.1); Sodium 141 mmol/L (136-145); Total Protein 7.8 g/dL (6.4-8.2)
== END 2024-05-31 16:40 | disposition home or self-care (01) ==
LOC: NCHCN 16:39
PROVIDERS: PCP Family Medicine; Visit Provider Family Medicine
DX: F50.20 Bulimia nervosa, unspecified (principal); F50.00 Anorexia nervosa, unspecified
CPT/HCPCS: 80053; 82150; 83735; 84100

== ENCOUNTER 2024-06-11 15:14 | Outpatient (REF) | payer MEDICAID, SELFPAY ==
--- OUTSIDE RECORDS SUMMARY | 2024-06-11 15:18 | XMS_ITS | Clinical Summary ---
Author Organization [facility] Address [address] [place] [address] Care Team Providers Care Preparation Supervisor Freezing Name Role Phone Unavailable Primary Care Provider [...]
--- OUTSIDE RECORDS SUMMARY | 2024-06-11 15:18 | XMS_ITS | Encounter Summary ---
Author Organization [facility] Address [address] [place] [address] Care Team Providers Care Horticultural Nursery Assistant Name Role Phone Unavailable Primary Care Provider Unavailabl e Encounter Details Date Type Department Care Team (Late st Contact Info) Description 09/10/2022 Lab Requisition [facility] Pathology & Laboratory Medicine - [facility] [address] [place] [address] Outr Resulting Lab, Provider Social History Tobacco [...] gonorrhoeae Result Negative Negative 09/11/2022 13:25 EDT [facility] Chlamydia trachomatis Result Negative Negative 09/11/2022 13:25 EDT [facility] Urine URINE / Unknown 09/09/2022 1 0:00 EDT 09/10/2022 18:48 EDT Narrative [facility] - 09/11/2022 13:25 EDT A first catch urine specimen is acceptable for detection of Gonorrhea and Chlamydia, but might detect up to 10% fewer infections when compared with vaginal and endocervical swab samples. us Provider Outr Resulting Lab MICROBIOLOGY - GENER AL ORDERABLES Final Result [facility] [address] [place] [address] documented in this encounter Visit Diagnoses Not on filedocumented in this encounter
--- OUTSIDE RECORDS SUMMARY | 2024-06-11 15:18 | XMS_ITS | Referral Summary ---
Author Organization [facility] Address [address] [place] [address] Care Team Providers Care Budder Name Role Phone Unavailable Primary Care Provider [...]
[2024-06-11 21:03] LABS: ALT 19 U/L (14-59); AST 22 U/L (15-37); Albumin 3.7 g/dL (3.4-5.0); Alkaline Phosphatase 56 U/L (46-116); Amylase 38 U/L (25-115); Anion Gap 4.5 mmol/L (3-11); BUN 16 mg/dL (7-18); Bilirubin, Total 0.17 mg/dL (0.2-1.0); CO2 32.5 mmol/L (21.0-32.0); CREATININE 0.7 mg/dL (0.55-1.02); Chloride 107 mmol/L (98-107); Glucose 79 mg/dL (74-106); Magnesium 1.8 mg/dL (1.8-2.4); Sodium 144 mmol/L (136-145); Total Protein 7.2 g/dL (6.4-8.2)
== END 2024-06-11 15:15 | disposition home or self-care (01) ==
LOC: NCHCN 15:14
PROVIDERS: PCP Family Medicine; Visit Provider Family Medicine
DX: F50.00 Anorexia nervosa, unspecified (principal)
CPT/HCPCS: 80053; 82150; 83735; 84100

== ENCOUNTER 2024-06-16 15:11 | Outpatient (REF) | payer MEDICAID, SELFPAY ==
--- OUTSIDE RECORDS SUMMARY | 2024-06-16 15:13 | XMS_ITS | Referral Summary ---
Author Organization [facility] Address [address] [place] [address] Care Team Providers Care Filbert Grower Name Role Phone Unavailable Primary Care Provider [...]
--- OUTSIDE RECORDS SUMMARY | 2024-06-16 15:13 | XMS_ITS | Encounter Summary ---
Author Organization [facility] Address [address] [place] [address] Care Team Providers Care Concrete Craftsman Name Role Phone Unavailable Primary Care Provider Unavailabl e Encounter Details Date Type Department Care Team (Late st Contact Info) Description 09/10/2022 Lab Requisition [facility] Pathology & Laboratory Medicine - [address] [address] Outr Resulting Lab, Provider Social History Tobacco [...] Negative Negative 09/11/2022 13:25 EDT [facility] Chlamydia trachomatis Result Negative Negative 09/11/2022 13:25 EDT [facility] Urine URINE / Unknown 09/09/2022 1 0:00 EDT 09/10/2022 18:48 EDT Narrative [facility] - 09/11/2022 13:25 EDT A first catch urine specimen is acceptable for detection of Gonorrhea and Chlamydia, but might detect up to 10% fewer infections when compared with vaginal and endocervical swab samples. us Provider Outr Resulting Lab MICROBIOLOGY - GENER AL ORDERABLES Final Result [facility] [address] [place] [address] documented in this encounter Visit Diagnoses Not on filedocumented in this encounter
--- OUTSIDE RECORDS SUMMARY | 2024-06-16 15:13 | XMS_ITS | Clinical Summary ---
Author Organization [facility] Address [address] [place] [address] Care Team Providers Care Board Design Engineer Name Role Phone Unavailable Primary Care Provider [...]
[2024-06-16 21:18] LABS: ALT 21 U/L (14-59); AST 27 U/L (15-37); Alkaline Phosphatase 62 U/L (46-116); Amylase 36 U/L (25-115); Anion Gap 3.6 mmol/L (3-11); BUN 14 mg/dL (7-18); Bilirubin, Total 0.43 mg/dL (0.2-1.0); CO2 35.4 mmol/L (21.0-32.0); CREATININE 0.8 mg/dL (0.55-1.02); Calcium 9.5 mg/dL (8.5-10.1); Chloride 103 mmol/L (98-107); Estimated GFR 108.11 (mL/min/1.73m2); Glucose 82 mg/dL (74-106); PHOSPHORUS 4.1 mg/dL (2.6-4.7); Potassium 3.4 mmol/L (3.5-5.1); Sodium 142 mmol/L (136-145); Total Protein 7.8 g/dL (6.4-8.2)
== END 2024-06-16 15:12 | disposition home or self-care (01) ==
LOC: NCHCN 15:11
PROVIDERS: PCP Family Medicine; Visit Provider Family Medicine
DX: F50.20 Bulimia nervosa, unspecified (principal)
CPT/HCPCS: 80053; 82150; 83735; 84100

== ENCOUNTER 2024-10-06 09:22 | Emergency (ER) | payer MEDICAID, SELFPAY ==
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
--- NOTE | 2024-10-06 10:08 | CMSP_ITS ---
Date of service: 10/06/24 Time of Service: 10:08 Care Management Safety Plan Status Status: Involuntary Reason for Wait Reason for Wait: Inpatient Admission Safety Plan Safety Plan: INVOLUNTARY FOR INPATIENT PSYCHIATRIC STABILIZATION.? Patient is appropriate in all interactions since arriving at [facility]; Pt has demonstrated appropriate coping and communication skills, has articulated his or her needs and concerns and is fully engaged during staff interactions. Safety plan has been established with patient, and care team, to adhere to patient goals, identify restrictions based on behavioral status, address nutrition, and determine allowed personal belongings, tools for hygiene and personal care. Determine level of activity including ambulation, level of supervision, visitors, and determine privileges based on behaviors and level of engagement by pt. SAFETY PLAN: 1. Will remain on suicide precautions, in paper clothes 2. Will remain in Zone B under direct supervision of one-on-one staff at all times provided by [employer]; SUKHWINDER, FIRE PRODUCTION OPERATOR development and housing director. 3. May have paper cups, plates, finger foods as well as a cardboard spoon with which to eat meals. 4. Follow [facility] Management of the Admitted Behavioral Health Patient policy. 5. Shower available in Zone B without restriction. 6. Personal belongings-soft items permitted at RN discretion. 7. Visitors-none at this time. 8. Activities: soft cart items approved per RN discretion. 9.? Bathroom available in Zone B without restriction. 10. Phone: limited to family law paralegal on [facility] cordless phone at RN discretion. Due to INVOLUNTARY status, patient is being held at [facility] by the Department of Mental Health ([facility]) until 2nd certification by [facility] Psychiatrist can be performed (within 24 hours). Staff will provide de-escalation support (CPI) as needed. If patient wishes to leave [facility], staff will contact [facility] Crisis Screener ([phone]) and Lobby Attendant ([phone]) as soon as possible. In the event of elopement, notify [place] [employer] Police ([phone]). Patient is currently involuntarily at [facility]. [facility] Frontline Agricultural Lender will continue seeking placement. Please contact the Lobby Attendant for any needed changes to Safety Plan. Safety plan has been provided to interdepartmental care team. Patient will be transported by [email or web address] at time of discharge.
--- NOTE | 2024-10-06 10:08 | PDOC.CMSAFE ---
Date of service: 10/06/24 Time of Service: 10:08 Care Management Safety Plan Status Status: Involuntary Reason for Wait Reason for Wait: Inpatient Admission Safety Plan Safety Plan: INVOLUNTARY FOR INPATIENT PSYCHIATRIC STABILIZATION.? Patient is appropriate in all interactions since arriving at [facility]; Pt has demonstrated appropriate coping and communication skills, has articulated his or her needs and concerns and is fully engaged during staff interactions. Safety plan has been established with patient, and care team, to adhere to patient goals, identify restrictions based on behavioral status, address nutrition, and determine allowed personal belongings, tools for hygiene and personal care. Determine level of activity including ambulation, level of supervision, visitors, and determine privileges based on behaviors and level of engagement by pt. SAFETY PLAN: 1. Will remain on suicide precautions, in paper clothes 2. Will remain in Zone B under direct supervision of one-on-one staff at all times provided by [employer]; SUKHWINDER, IMPACT HAMMER OPERATOR senior program planner. 3. May have paper cups, plates, finger foods as well as a cardboard spoon with which to eat meals. 4. Follow [facility] Management of the Admitted Behavioral Health Patient policy. 5. Shower available in Zone B without restriction. 6. Personal belongings-soft items permitted at RN discretion. 7. Visitors-none at this time. 8. Activities: soft cart items approved per RN discretion. 9.? Bathroom available in Zone B without restriction. 10. Phone: limited to legal officer on [facility] cordless phone at RN discretion. Due to INVOLUNTARY status, patient is being held at [facility] by the Department of Mental Health ([facility]) until 2nd certification by [facility] Psychiatrist can be performed (within 24 hours). Staff will provide de-escalation support (CPI) as needed. If patient wishes to leave [facility], staff will contact [facility] Crisis Screener ([phone]) and Lacrosse Coach ([phone]) as soon as possible. In the event of elopement, notify [place] [employer] Police ([phone]). Patient is currently involuntarily at [facility]. [facility] Frontline Open Source Developer will continue seeking placement. Please contact the Lacrosse Coach for any needed changes to Safety Plan. Safety plan has been provided to interdepartmental care team. Patient will be transported by [employer] at time of discharge.
--- NOTE | 2024-10-06 12:08 | PDOC.CMPRO ---
Date of service: 10/06/24 Time of Service: 12:08 Care Management Progress Note Progress Note Text Progress Note Text: CM huddled with staff regarding Connie's plan of care. She was in her room at this time. Per report, she is refusing lunch, and vital's at this time. She was brought in by [facility] after reportedly getting undressed and becoming agitated in [employer]. Per [facility], she has been off her medication for two weeks. NK is pursuing an involuntary hold at this time, as she is not willing to stay voluntary for treatment. Safety plan is in place. Visitors and phone calls are restricted at this time (with the exception of legal technician) due to concerns for increase in agitation. CM will continue to follow. MH Services (Omit if N/A) Current MH Services: [facility] (Patricio paula ) Social Determinants of Health Screening Will the Patient Participate in the Screening?: Unable to obtain
[2024-10-06 12:19] VITALS: BP 135/87; PULSE 66; RESP 14; TEMP 36.3; O2SAT 95
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
[2024-10-06 12:39] LABS: Abs Immature Grans 0.03 10^3/uL (0.0-0.06); Absolute Basophil Count 0.05 10^3/uL (0.0-0.2); Absolute Eosinophil Count 0.06 10^3/uL (0.0-0.7); Absolute Lymphocyte Count 1.09 10^3/uL (1.2-3.4); Absolute Monocyte Count 0.71 10^3/uL (0.1-0.8); Absolute Neutrophil Count 7.95 10^3/uL (1.2-6.7); Basophils % 0.5 %; Eosinophils % 0.6 %; HGB 14.2 g/dL (11.2-15.7); Immature Grans % 0.3 %; MCH 26.4 pg (27.0-33.0); MCV 80 fL (80-95); Monocytes % 7.2 %; Neutrophils % 80.4 %; Platelet Count 335 10^3/uL (130-400); RBC 5.37 10^6/uL (3.93-5.22); RDW 15.9 % (11.7-14.6); RDW-SD 46.2 fL; WBC 9.89 10^3/uL (4.4-10.8)
[2024-10-06 12:59] LABS: Bilirubin Small (Negative); Blood Negative (Negative); Clarity Clear (Clear); Glucose 100 mg/dL (Negative); Ketones Trace mg/dL (Negative); Leukocyte Esterase Negative (Negative); Nitrite Negative (Negative); Specific Gravity >= 1.030 (1.005-1.025); Urobilinogen 0.2 mg/dL (Up to 0.2); pH 6.5 (5-8)
[2024-10-06 13:13] LABS: ALT 21 U/L (14-59); AST 27 U/L (15-37); Albumin 4.7 g/dL (3.4-5.0); Alkaline Phosphatase 89 U/L (46-116); Anion Gap 12.9 mmol/L (3-11); BUN 10 mg/dL (7-18); Bilirubin, Total 0.6 mg/dL (0.2-1.0); CO2 27.1 mmol/L (21.0-32.0); CREATININE 0.9 mg/dL (0.55-1.02); Calcium 10.7 mg/dL (8.5-10.1); Chloride 100 mmol/L (98-107); Estimated GFR 93.86 (mL/min/1.73m2); Glucose 112 mg/dL (74-106); Potassium 3.5 mmol/L (3.5-5.1); Sodium 140 mmol/L (136-145); TSH (W/Ref FT4) 1.02 uIU/mL (0.36-3.74); Total Protein 9.3 g/dL (6.4-8.2)
[2024-10-06 13:22] LABS: Bacteria Moderate HPF (Negative); Crystals Negative HPF (Negative); Epithelial Cells Moderate HPF (Negative); Mucus Moderate (Negative); RBC 0-2 HPF (0-2); WBC 0-2 HPF (0-5)
[2024-10-06 13:22] LABS: Salicylate 3.6 mg/dL (<2.8)
[2024-10-06 13:23] LABS: C & S Indicated? No
[2024-10-06 13:29] LABS: Acetaminophen < 2 ug/mL (10-30)
[2024-10-06 13:43] LABS: *AMPHETAMINES SCREEN URINE Negative (Negative); *BARBITURATES SCREEN URINE Negative (Negative); *BENZODIAZEPINES SCREEN URINE Positive (Negative); Cannabinoids THC Positive (Negative); Cocaine Screen,Urine Negative (Negative); METHADONE URINE SCREEN Negative (Negative); OPIATES URINE SCREEN Negative (Negative)
[2024-10-06 13:44] LABS: Tricyclic Antidepressants Positive (Negative)
[2024-10-06 13:44] LABS: ETHANOL BLOOD < 3.0 mg/dL (<10)
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
--- NOTE | 2024-10-06 15:30 | DI.RAD_ITS ---
Exam(s) XR FOOT RT COMPLETE EXAM: XR FOOT RT COMPLETE CLINICAL HISTORY: pain. TECHNIQUE: 2D digital imaging was performed. COMPARISON: No exams were available for comparison FINDINGS: 3 views No evidence of fracture nor diastasis of the Lisfranc joint. Great toe metatarsophalangeal joint hien ears unremarkable. No pes planus. No radiopaque foreign bodies nor gas in the soft tissues. Bone d ensity normal. No osseous lesions. IMPRESSION: No significant osseous findings in the foot. DATA REPOSITORY: RADIATION DOSE DELIVERED:
--- NOTE | 2024-10-06 15:30 | DI.RAD_ITS ---
Exam(s) XR ANKLE RT COMPLETE EXAM: XR ANKLE RT COMPLETE CLINICAL HISTORY: pain. TECHNIQUE: 2D digital imaging was performed. COMPARISON: No exams were available for comparison FINDINGS: 3 views No evidence of fracture or widening of the ankle mortise. Talar dome unremarkable. No soft tissue s welling evident. No degenerative changes. Bone density normal. No osseous lesions. No osseous tar emily coalition evident. IMPRESSION: No significant osseous findings in the right ankle. DATA REPOSITORY: RADIATION DOSE DELIVERED:
[2024-10-06] MEDS: Ibuprofen 800 MG TAB PO (15:49)
[2024-10-06] MEDS: diazePAM 5 MG TAB PO (18:47)
[2024-10-06] MEDS: Melatonin 3 MG TAB PO (20:51)
[2024-10-06] MEDS: diazePAM 5 MG TAB 10 MG PO (22:07)
[2024-10-07] MEDS: busPIRone 15 MG TAB PO (06:05)
[2024-10-07] MEDS: lamoTRIgine 25 MG TAB 50 MG PO (06:05)
[2024-10-07] MEDS: diazePAM 5 MG TAB PO ×2 (06:05→13:39)
--- NOTE | 2024-10-07 06:18 | NUR.NOTE ---
Mother called asking about patient. Per Castillo Bowser RN I told her that she had done well overnight. She did just come out and ask for medication which she was given. She is currently lying in her bed. Mother will try calling again aroung 0730 to speak with Quincy B RN. Nursing Note:
--- NOTE | 2024-10-07 07:09 | ED.PROG_ITS ---
Date of service: 10/07/24 Time of Service: 07:09 Medical Decision Making Patient here in the ED on an EE for involuntary placement. Second certification has not occurred as of yet. This morning was in zone in the hallway naked requesting her morning medications early. These were provided. There were otherwise no significant events overnight. Discharge Plan Discharge Details Chief Complaint: PsychEval Clinical Impression: Depression, Foot pain, right, Acute right ankle pain Primary Care Provider: Laila Carrasco ED Provider: Shay Chapa [place] Meds and New Rx's Prescriptions: No Action diazepam 5 mg tablet 5 mg PO BID Patient Comments: TAKE ONE TABLET BY MOUTH TWICE A DAY AT 8AM AND 6PM lamotrigine 25 mg tablet 50 mg PO DAILY Patient Comments: TAKE TWO TABLETS BY MOUTH EVERY MORNING AT 8 AM. melatonin 1 mg tablet 3 mg PO HS Patient Comments: TAKE THREE TABLETS BY MOUTH EVERY DAY AT 8PM buspirone 15 mg tablet 15 mg PO BID Patient Comments: TAKE TWO TABLETS BY MOUTH TWICE A DAY (AT 8AM AND 9PM)
[2024-10-07] MEDS: OLANZapine 10 MG VIAL (07:30)
--- NOTE | 2024-10-07 07:36 | W.EDPROG ---
Medical Decision Making Quality:SDOH Health Related Social Needs: No Data to Display Discharge Plan Discharge Details Chief Complaint: PsychEval Clinical Impression: Depression, Foot pain, right, Acute right ankle pain Primary Care Provider: Laila Carrasco ED Provider: Shay Chapa [place] Meds and New Rx's Prescriptions: No Action diazepam 5 mg tablet 5 mg PO BID Patient Comments: TAKE ONE TABLET BY MOUTH TWICE A DAY AT 8AM AND 6PM lamotrigine 25 mg tablet 50 mg PO DAILY Patient Comments: TAKE TWO TABLETS BY MOUTH EVERY MORNING AT 8 AM. melatonin 1 mg tablet 3 mg PO HS Patient Comments: TAKE THREE TABLETS BY MOUTH EVERY DAY AT 8PM buspirone 15 mg tablet 15 mg PO BID Patient Comments: TAKE TWO TABLETS BY MOUTH TWICE A DAY (AT 8AM AND 9PM)
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
--- NOTE | 2024-10-07 08:06 | ED.PROG_ITS ---
Date of service: 10/07/24 Time of Service: 12:28 Medical Decision Making In brief, this is a 18-year-old female patient boarding in our emergency department on an EE involuntary hold for suicidal ideations. Please see the event note from this morning regarding the patient's harm to self and staff, requiring administration of intramuscular Zyprexa. Following this event, the patient rested quietly, was able to be reevaluated by [facility]. No further acute medication interventions were required for sedation or restraint. Signed out to the oncoming provider prior to final disposition. Mireya Darden MD Medical Records Medical records reviewed: Yes I reviewed the patient's medical records. Lab Data Lab results reviewed: Yes I reviewed the patient's lab results. Quality:SDOH Health Related Social Needs: No Data to Display Discharge Plan Discharge Details Chief Complaint: PsychEval Clinical Impression: Depression, Foot pain, right, Acute right ankle pain Primary Care Provider: Laila Carrasco ED Provider: Mireya Darden [facility] Meds and New Rx's Prescriptions: No Action diazepam 5 mg tablet 5 mg PO BID Patient Comments: TAKE ONE TABLET BY MOUTH TWICE A DAY AT 8AM AND 6PM lamotrigine 25 mg tablet 50 mg PO DAILY Patient Comments: TAKE TWO TABLETS BY MOUTH EVERY MORNING AT 8 AM. melatonin 1 mg tablet 3 mg PO HS Patient Comments: TAKE THREE TABLETS BY MOUTH EVERY DAY AT 8PM buspirone 15 mg tablet 15 mg PO BID Patient Comments: TAKE TWO TABLETS BY MOUTH TWICE A DAY (AT 8AM AND 9PM)
--- NOTE | 2024-10-07 08:50 | CMSP_ITS ---
Date of service: 10/07/24 Time of Service: 08:50 Care Management Safety Plan Status Status: Involuntary Reason for Wait Reason for Wait: Inpatient Admission Safety Plan Safety Plan: INVOLUNTARY FOR INPATIENT PSYCHIATRIC STABILIZATION.? Patient is appropriate in all interactions since arriving at [facility]; Pt has demonstrated appropriate coping and communication skills, has articulated his or her needs and concerns and is fully engaged during staff interactions. Safety plan has been established with patient, and care team, to adhere to patient goals, identify restrictions based on behavioral status, address nutrition, and determine allowed personal belongings, tools for hygiene and personal care. Determine level of activity including ambulation, level of supervision, visitors, and determine privileges based on behaviors and level of engagement by pt. Interdisciplinary department huddle was coordinated to review safety considerations; Nelda from [facility], RN Bulk Mail Clerk JOANNE Rothman and [facility] staff and CM were in attendance. Connie is provided with Paper scrubs, however she continues to choose not to wear any clothes. Per [facility] clinician Jessica knows why she is here, knows what she did and denies HI/SI. (See [facility] documentation for details. )Connie is involuntarily admitted (EE in place) to [facility] while waiting to be accepted by an inpatient facility. Please note, consideration #10 permits phone privileges with legal bishop paiute and parents (at RN discretretion.) SAFETY PLAN: 1. Will remain on suicide precautions, in paper clothes 2. Will remain in Zone B under direct supervision of one-on-one staff at all times provided by [employer]; SUKHWINDER, HOSE TESTER camera supervisor. 3. May have paper cups, plates, finger foods as well as a cardboard spoon with which to eat meals. 4. Follow [facility] Management of the Admitted Behavioral Health Patient policy. 5. Shower available in Zone B without restriction. 6. Personal belongings-soft items permitted at RN discretion. 7. Visitors-supportive visitors at RN discretion 8. Activities: soft cart items approved per RN discretion. 9.? Bathroom available in Zone B without restriction. 10. Phone: limited to parents and financial legal assistant on [facility] cordless phone at RN discretion. Due to INVOLUNTARY status, patient is being held at [facility] by the Department of Mental Health ([facility]) until 2nd certification by [facility] Psychiatrist can be performed (within 24 hours). Staff will provide de-escalation support (CPI) as needed. If patient wishes to leave [facility], staff will contact [facility] Crisis Screener ([phone]) and Email Marketing Manager ([phone]) as soon as possible. In the event of elopement, notify [facility] Police ([phone]). Patient is currently involuntarily at [facility]. [facility] Frontline Mathematical Technician will continue seeking placement. Please contact the Email Marketing Manager for any needed changes to Safety Plan. Safety plan has been provided to interdepartmental care team. Patient will be transported by [employer] at time of discharge.
--- NOTE | 2024-10-07 08:50 | PDOC.CMSAFE ---
Date of service: 10/07/24 Time of Service: 08:50 Care Management Safety Plan Status Status: Involuntary Reason for Wait Reason for Wait: Inpatient Admission Safety Plan Safety Plan: INVOLUNTARY FOR INPATIENT PSYCHIATRIC STABILIZATION.? Patient is appropriate in all interactions since arriving at [facility]; Pt has demonstrated appropriate coping and communication skills, has articulated his or her needs and concerns and is fully engaged during staff interactions. Safety plan has been established with patient, and care team, to adhere to patient goals, identify restrictions based on behavioral status, address nutrition, and determine allowed personal belongings, tools for hygiene and personal care. Determine level of activity including ambulation, level of supervision, visitors, and determine privileges based on behaviors and level of engagement by pt. Interdisciplinary department huddle was coordinated to review safety considerations; Nelda from [facility], RN Global Vp Creative + Content Marketing JOANNE Rothman and [facility] staff and CM were in attendance. Connie is provided with Paper scrubs, however she continues to choose not to wear any clothes. Per [facility] clinician Jessica knows why she is here, knows what she did and denies HI/SI. (See [facility] documentation for details. )Connie is involuntarily admitted (EE in place) to [facility] while waiting to be accepted by an inpatient facility. Please note, consideration #10 permits phone privileges with legal [place] tribe and parents (at RN discretretion.) SAFETY PLAN: 1. Will remain on suicide precautions, in paper clothes 2. Will remain in Zone B under direct supervision of one-on-one staff at all times provided by [employer]; SUKHWINDER, REVENUE ENFORCEMENT AGENT senior coldfusion developer. 3. May have paper cups, plates, finger foods as well as a cardboard spoon with which to eat meals. 4. Follow [facility] Management of the Admitted Behavioral Health Patient policy. 5. Shower available in Zone B without restriction. 6. Personal belongings-soft items permitted at RN discretion. 7. Visitors-supportive visitors at RN discretion 8. Activities: soft cart items approved per RN discretion. 9.? Bathroom available in Zone B without restriction. 10. Phone: limited to parents and labor and employment paralegal on [facility] cordless phone at RN discretion. Due to INVOLUNTARY status, patient is being held at [facility] by the Department of Mental Health ([facility]) until 2nd certification by [facility] Psychiatrist can be performed (within 24 hours). Staff will provide de-escalation support (CPI) as needed. If patient wishes to leave [facility], staff will contact [facility] Crisis Screener ([phone]) and Sas Etl Developer ([phone]) as soon as possible. In the event of elopement, notify [facility] Police ([phone]). Patient is currently involuntarily at [facility]. [facility] Frontline Tailor'S Aide will continue seeking placement. Please contact the Sas Etl Developer for any needed changes to Safety Plan. Safety plan has been provided to interdepartmental care team. Patient will be transported by [employer] at time of discharge.
--- NOTE | 2024-10-07 13:21 | PDOC.MHPN2 ---
Date of service: 10/07/24 Time of Service: 13:21 Mental Health Emergency Note Release [facility] release signed:: Yes Reason for Visit The client is known to [facility] and receives services through the DS program. She was last hospitalized in December of 2023 involuntarily. She was last seen at [facility] on 10.05.24. This is a reassessment face to face in Zone B where the client waits on EE status. In the last 2 weeks has the pt presented for ES prior to today?: Unknown Impression The client is a single 18 y/o female that resides in [place], [place] with her mother, step-father and siblings. All underrepresented categories were honored during this assessment. The client reported that she is at the hospital due to I was erratic in the [employer] parking lot. She reported she does not know if she slept or not. She reported eating good. The client stated defiantly not when asked about homicidal thoughts. She denied SI as well. She was consistently asking for scrubs and this clinician informed her that this request will be put into the nursing staff for her. She did not want to otherwise engage in the assessment and this was not pushed due to the client's earlier behaviors toward the ED Doctor. Plan/Disposition Recommended Disposition: Hospitalization facilities contacted. Plan: The client will remain at [facility] and a referral has been put in for [facility] with an admission as soon as possibly tomorrow. The client has utilized the [facility] however that resource is not reasonable at this time. Person reported agreement to plan: No Reports/communication Outcome discussed with: ED/Personnel
--- NOTE | 2024-10-07 14:36 | CMPROGNOTE_ITS ---
Date of service: 10/07/24 Time of Service: 14:36 Care Management Progress Note Progress Note Text Progress Note Text: Safety Plan was updated this afternoon, please review addendum. Connie spoke with her mother via [facility] cordless phone this afternoon; a change that was made to her safety plan yesterday afternoon at the request of [facility] B RN as a result of positive behavior (consideration was at RN discretion, please see 10/06/24 safety plan and addendum.) The interaction did not go well; during the call Connie threw the phone (which is now broke), started slamming/smashing the door and became a risk to herself and staff. Event required a staff emerge ncy, security and an interdepartmental huddle was called. Zone B RN's Miguel and Crystal, RN banquet supervisor Lorna, ER provider Mireya Darden, Nelda from [facility], security, CNO Melina, Legal/risk Hair Reinoso, ER Director Dr. Jackson, and Richmond from Care Management were all in attendance. It was collectively decided that phone privileges be restricted to legal [facility] only. In addition, to nudity, behavior and safely concerns, patient will only be permitted to leave her room to use the bathroom, at RN discretion. Please see Event Report for additional details, if warranted. Connie is awaiting inpatient psychiatric treatment and [facility] agrees that her transfer will be Priority. INVOLUNTARY FOR INPATIENT PSYCHIATRIC STABILIZATION.? Patient is appropriate in all interactions since arriving at [facility]; Pt has demonstrated appropriate coping and communication skills, has articulated his or her needs and concerns and is fully engaged during staff interactions. Safety plan has been established with patient, and care team, to adhere to patient goals, identify restrictions based on behavioral status, address nutrition, and determine allowed personal belongings, tools for hygiene and personal care. Determine level of activity including ambulation, level of supervision, visitors, and determine privileges based on behaviors and level of engagement by pt. Interdisciplinary department huddle was coordinated to review safety considerations; Nelda from [facility], RN Certified Prosthetist JOANNE Rothman and [facility] staff and CM were in attendance. Connie is provided with Paper scrubs, however she continues to choose not to wear any clothes. Per [facility] clinician Jessica knows why she is here, knows what she did and denies HI/SI. (See [facility] documentation for details. )Connie is involuntarily admitted (EE in place) to [facility] while waiting to be accepted by an inpatient facility. Please note, consideration #10 permits phone privileges with legal [facility] and parents (at RN discretretion.) SAFETY PLAN: 1. Will remain on suicide precautions, in paper clothes. 2. Will remain in Zone B under direct supervision of one-on-one staff at all times provided by [employer]; SUKHWINDER, FISH DRIER charging manipulator. 3. May have paper cups, plates, finger foods as well as a cardboard spoon with which to eat meals, at RN discretion. 4. Follow [facility] Management of the Admitted Behavioral Health Patient policy. 5. Shower available in Zone B with limitations (at RN discretion) due to need for seclusion to her room. 6. Personal belongings-soft items permitted at RN discretion. 7. Visitors-None at this time. 8. Activities: soft cart items approved per RN discretion. 9.? Bathroom in Zone B is available with limitations (at RN discretion) due to need for seclusion to her room. 10. Phone: limited compliance paralegal on [facility] cordless phone (at RN discretion. ) Due to INVOLUNTARY status, patient is being held at [facility] by the Department of Mental Health ([facility]) until 2nd certification by [facility] Psychiatrist can be performed (within 24 hours). Staff will provide de-escalation support (CPI) as needed. If patient wishes to leave [facility], staff will contact [facility] Crisis Screener ([phone]) and Fork Lift Technician ([phone]) as soon as possible. In the event of elopement, notify [place] [employer] ([phone]). Patient is currently involuntarily at [facility]. [facility] Frontline Criminal Justice Faculty will continue seeking placement. Please contact the Fork Lift Technician for any needed changes to Safety Plan. Safety plan has been provided to interdepartmental care team. Patient will be transported by [employer] at time of discharge. Status Status: Involuntary Reason for Wait: Inpatient Admission (Involuntary admission, awaiting inpatient psychiatric treatment) Social Determinants of Health Screening Will the Patient Participate in the Screening?: Unable to obtain
--- NOTE | 2024-10-07 14:39 | CE_ITS ---
Date of service: 10/07/24 Time of Service: 13:30 Event Note: A rapid response/security alert was called to zone B. Per the report given to this provider, the patient had been allowed to speak on the phone to her mother after her care plan had been called into question. The patient's mother has been in contact with risk-management throughout the day. It is unclear what the mother said to the patient over the phone, but the patient became quite agitated and escalated during their conversation, stripping off her clothing and walking out into the hallway. She began slamming the bathroom door repeatedly, and threw the phone onto the floor, breaking it. She began to yell at the nurse who attempted to verbally de-escalate her, and threatened physical harm to him. The patient states I just want to be unconscious, I do not want to be feeling this. She was able to de-escalate verbally and went back into her room voluntarily. She did not require physical or chemical restraint. A huddle was held with members of risk-management, ED director, CNO, lead worker of housekeeping and laundry, care management, [facility], and this provider. At this time, I am concerned that liberalizing the patient's phone privileges and allowing her to speak to members of her family including her mother represent a triggering situation to the patient that has now resulted in agitation, aggression, and a threat of harm to both the patient and the staff members. I do not feel that allowing this patient to have continued phone privileges would be therapeutic at this time. Her care plan was revised to include telephone conversations with her legal cashier only while she remains on an involuntary hold. I did provide the patient with a one-time dose of Valium given that it has been a safe amount of time since her last dose. An attempt will be made to escalate patient placement given her increased acuity and severity of behaviors here in the emergency department. Please see the progress note for the remainder of her daily care during my shift. Mireya Darden MD Time Spent with Patient Time spent in critical care(minutes): 0 Time Spent Included: Coordination of care
--- NOTE | 2024-10-07 14:46 | ED.PROG_ITS ---
Date of service: 10/07/24 Time of Service: 07:00 Medical Decision Making In brief, this is a 18-year-old female patient boarding in our emergency department on an involuntary hold for suicidal ideation and agitation. Please see the 2 event notes from today regarding acute incidents. Prior to my taking over her care, she was medically cleared, has been hemodynamically appropriate and taking the medications prescribed. She was accepted to the [facility] during my shift, and will be transferred to that facility for ongoing psychiatric care. She remained hemodynamically appropriate while under my care and left our facility without incident. Mireya Darden MD Medical Records Medical records reviewed: Yes I reviewed the patient's medical records. Lab Data Lab results reviewed: Yes I reviewed the patient's lab results. Quality:SDOH Health Related Social Needs: No Data to Display Discharge Plan Disposition Patient Disposition: Psychiatric Hospital/Unit Specific Psychiatric Facility: [facility] Condition: Stable Discharge Details Clinical Impression: Depression, Foot pain, right, Acute right ankle pain, Suicidal ideation, Aggressive behavior Primary Care Provider: Laila Carrasco ED Provider: Mireya Darden Home Meds and New Rx's Prescriptions: No Action diazepam 5 mg tablet 5 mg PO BID Patient Comments: TAKE ONE TABLET BY MOUTH TWICE A DAY AT 8AM AND 6PM lamotrigine 25 mg tablet 50 mg PO DAILY Patient Comments: TAKE TWO TABLETS BY MOUTH EVERY MORNING AT 8 AM. melatonin 1 mg tablet 3 mg PO HS Patient Comments: TAKE THREE TABLETS BY MOUTH EVERY DAY AT 8PM buspirone 15 mg tablet 15 mg PO BID Patient Comments: TAKE TWO TABLETS BY MOUTH TWICE A DAY (AT 8AM AND 9PM)
== END 2024-10-07 17:38 ==
PROVIDERS: Emergency Medicine; Emergency Provider Emergency Medicine; PCP Family Medicine
DX: R46.89 Other symptoms and signs involving appearance and behavior (principal); R45.851 Suicidal ideations; M25.571 Pain in right ankle and joints of right foot
CPT/HCPCS: 99285 ×3; 96372; 00123; 36415; 80053; 80307; H0046; 73610; 73630; 80320; 80329; 81003; 81015; 84443; 85025; J2359

== ENCOUNTER 2024-11-05 12:59 | Outpatient (REF) | payer MEDICAID, SELFPAY ==
[2024-11-08 13:01] LABS: Chlamydia Result Negative (Negative); GC Result Negative (Negative)
== END 2024-11-05 13:00 | disposition home or self-care (01) ==
LOC: NCHCN 12:59
PROVIDERS: PCP Family Medicine; Visit Provider Family Medicine
DX: Z20.2 Contact with and (suspected) exposure to infections with a predominantly sexual mode of transmission (principal)
CPT/HCPCS: 87491; 87591